=== PATIENT | male | born 1950 | race Caucasian/White ===

== ENCOUNTER → 2024-08-25 08:27 | Outpatient (REF) | payer MEDICARE, OTHER, SELFPAY ==
--- NOTE | 2024-07-23 13:15 | PN.DIAED02 ---
Referral
DSME Class Series Code: [id number]
Referred For: Diabetes Self-Management Training, Medical Nutrition Therapy, Self-Blood Glucose Monitoring, Long-Term Complication Instruction, Accute Complication Instruction, Continuous Glucose Monitoring, Medication management, Insulin
Instruction, Care Coordination, Disease Management
PHI Release Authorization Form Signed: Yes
Patient Problems:
Current Active Problems
Problem Status Onset
Type 2 diabetes mellitus with hyperglycemia
Demographic
(1) Type 2 diabetes mellitus with hyperglycemia
Status: Chronic Code(s): E11.65 - Type 2 diabetes mellitus with hyperglycemia
Patient's primary language-: Gambian
Education: Some college
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
Hours Worked/Week: 20-40
Shift: Rotating
- Social
Primary Support Person: Self
Primary Care Takers: Self
Living Arrangements: Self
- Learning Methods
Preferred Method: Reading
Barriers to Learning: None
Glycemic Control
- Blood Glucose Monitoring Assessment
Date: 11/21/23 (FBS: 157 mg/dL)
Blood glucose monitoring at home: Yes
Monitor Brands: Freestyle
Frequency: occasionally (checks a few times per month)
- Hyperglycemia Assessment
Experiences Hyperglycemia: No
- Hypoglycemia Assessment
Patient carries glucose source: Yes
Patient experiences hypoglycemia: No (had episodes of dizziness while on glimeperide (discontinued after 2 weeks))
Frequency: rarely (Did not check a blood sugar when he felt dizzy-denies blood glucose <70 mg/dL)
Patient has required treatment by others: No
- Blood Glucose Monitoring Results
Source: self-report (reports fasting readings 117 mg/dL to 130 mg/dL)
- Hemoglobin A1c
Date: 11/21/23
A1C Percentage (%): 7.9
Medical History of Diabetes
Family Diabetes History: Mother
Previous Diabetes Education: No
Previous visit with Dietitian: No
Complications/Comorbidity/Specialist: Diabetic Neuropathy, Gastrointestinal disease (GERD: Omeprazole 40 mg daily), Heart Disease (history of afib: Eliquis 5 mg daily, ASA 81 mg daily), Hypertension (Carveditol 6.25 mg BID, ), Hyperlipidemia
(Atrovastin 80 mg daily), Metabolic (Metformin 1000 mg BID, Jardiance 25 mg daily), Other / symptoms (Buproprion 150 mg daily )
Measures
- Anthropometrics
Height: 6 ft
Actual Weight: 195 lb 12.8 oz
- Blood Pressure / Pulse
Blood pressure: 152/80
Pulse: 64
- Diabetes Management
Medical Management for Diabetes: Complete physical exam (06/04/2024), Dental exam (05/2024), Dilated eye exam (03/21/2024)
Self-Care
- Tobacco Usage
Do you now, or have you ever smoked?: Quit more than 1 year ago
- Alcohol & Drugs Usage
Drinks Alcohol: Yes
Amount/day: Social Occasions
- Meals & Dining
Meals & Dining: Patient skips meals: No, Food Intolerance / Allergy: No, Cultural / Nondenominational Dietary Needs: No
Primary Food Scrip Clerk: Self
Dining Out Frequency: Daily (works a rotating schedule and overnight--often grabs food quickly while driving)
- Physical Activity
Physical Limitation: No
Patient participates in physical Activity: No
- Self Foot-Care
Performs Self Foot-Exam: Yes
Frequency: Occationally
- Patient-Self Assessment
Diabetes Knowledge: Poor
Feelings About Diabetes: Acceptance
General Health: Good
Importance of Health: Somewhat
Stress Level: Low
Barriers to Diabetes Management: Nothing
Depression Survey Score: 1
- Diabetes Identification
Carries Diabetes Identification: No
Care Plan
- Education Needs
Patient Education Needs: Diabetes disease process, Chronic complications, Acute complications, Medication, Monitoring, Physical activity, Psychosocial Adjustment, Nutritional management, Goal setting & problem solving
Recommended Diabetes Training Program based on assessment: Outpatient Diabetes Education Program
- Plan of Care
Plan of Care:
Reinaldo presented for his initial assessment for the August DSME program. He has had diabetes for 5 years which was diagnosed while he was in the hospital having surgery. He had a weight loss after diagnosis of 40 pounds which he has maintained. He
currently takes Metformin 1000 mg BID and Jardiance 25 mg daily. His PCP started him on glimeperide a few weeks ago but discontinued it after 2 weeks due to dizziness. Reinaldo checks his blood sugar a few times per month using his freestyle glucometer
at home. I reviewed his testing technique along with a monitoring schedule. The target fasting and 2 hour post prandial glucose ranges were discussed and written material was provided. He states his challenge with following a meal plan is due to
his rotating work schedule and being on the road both days/overnights. We discussed basic nutrition and I reinforced he will receive an individuated meal plan in class that he can adapt to his current schedule. He does not currently exercise. He
reports sleep apnea in addition to his work schedule as reasons he is not active. We discussed increasing activity as one of his goals. I encouraged Reinaldo to contact the office if he has any questions or concerns.
--- NOTE | 2024-07-23 13:37 | PN.DIAED04 ---
Education Record
- Education Record
Class Attended: Other (Initial DSME assessment)
DSME Class Series Code: [id number]
Instructor: Registered Nurse (Kimberly Rader RN)
Pre-Program Knowledge: Needs review / Assistance
Pre-Test Score (%): 45
Goals
- Goal 1
Being Active: Exercise 15 minutes-3 times per week
Goals To Be Evaluated: Exercise 15 mins-3x/week
- Goal 2
Healthy Eating: Make better food choices
Goals To Be Evaluated: Make better food choices
- Goal 3
Monitoring: Monitor more often
Goals To Be Evaluated: Monitor more often
--- NOTE | 2024-08-26 10:01 | PN.DIAED14 ---
This is to notify you that your patient with diabetes, NIVIA SHRESTHA ( 1950), has enrolled in our diabetes self-management classes that are being held at [facility].
These classes will include an introduction to diabetes, diet, medication, exercise and prevention of complications. At the end of our class series, you will receive a report of your patient's participation and progress for your records.
Please contact me at the Diabetes Center, , if there is any particular information regarding your patient that might be helpful to me.
Sincerely,
Dmitry CONNER-ZAK,[facility]
--- NOTE | 2024-08-26 10:01 | PN.DIAED04 ---
Education Record
- Education Record
Class Attended: Class 1
DSME Class Series Code: [id number]
Instructor: Registered Nurse (Kimberly Rader RN)
Class Curriculum:
Outpatient Diabetes Education Program:
Class 1 (120 minutes)
Describe the diabetes disease process and treatment options
Diabetes management
Develop personal strategies to promote health and behavior change
Integrate psychosocial adjustment for daily living
Monitor blood glucose and other parameters. Interpret and use the results for self-management decision making
Prevent, detect, and treat acute complications
Class Length (mins): 120
Post-Class 1 Test Score (%): 94
--- NOTE | 2024-08-28 09:16 | PN.DIAED06 ---
Meal Plans - Regular
- Meal Plan
Diabetic Meal Plan Name: 1800 calories
Breakfast - Total Carbohydrate (grams): 45
Breakfast - Starch Carbohydrate: 0
Breakfast - Fruit Carbohydrate: 0
Breakfast - Milk Carbohydrate: 0
Breakfast - Nonstarchy Vegetables: Yes
Breakfast - Meat/Protein: 1
Breakfast - Fat: 2
Morning Snack - Total Carbohydrate (grams): 15
Morning Snack - Starch Carbohydrate: 0
Morning Snack - Fruit Carbohydrate: 0
Morning Snack - Milk Carbohydrate: 0
Morning Snack - Nonstarchy Vegetables: Yes
Morning Snack - Meat/Protein: 0.5
Morning Snack - Fat: 0
Lunch - Total Carbohydrate (grams): 45
Lunch - Starch Carbohydrate: 0
Lunch - Fruit Carbohydrate: 0
Lunch - Milk Carbohydrate: 0
Lunch - Nonstarchy Vegetables: Yes
Lunch - Meat/Protein: 3
Lunch - Fat: 1
Afternoon Snack - Total Carbohydrate (grams): 15
Afternoon Snack - Starch Carbohydrate: 0
Afternoon Snack - Fruit Carbohydrate: 0
Afternoon Snack - Milk Carbohydrate: 0
Afternoon Snack - Nonstarchy Vegetables: Yes
Afternoon Snack - Meat/Protein: 0.5
Afternoon Snack - Fat: 0
Dinner - Total Carbohydrate (grams): 45
Dinner - Starch Carbohydrate: 0
Dinner - Fruit Carbohydrate: 0
Dinner - Milk Carbohydrate: 0
Dinner - Nonstarchy Vegetables: Yes
Dinner - Meat/Protein: 3
Dinner - Fat: 2
Evening Snack - Total Carbohydrate (grams): 15
Evening Snack - Starch Carbohydrate: 0
Evening Snack - Fruit Carbohydrate: 0
Evening Snack - Milk Carbohydrate: 0
Evening Snack - Nonstarchy Vegetables: Yes
Evening Snack - Meat/Protein: 0
Evening Snack - Fat: 0
== END ==
LOC: DES 08:27
PROVIDERS: ATTENDING PHYSICIAN Internal Medicine
DX: E11.65 Type 2 diabetes mellitus with hyperglycemia (principal)
CPT/HCPCS: 99078

== ENCOUNTER → 2024-09-01 08:28 | Outpatient (REF) | payer MEDICARE, OTHER, SELFPAY ==
--- NOTE | 2024-09-02 09:56 | PN.DIAED04 ---
Education Record
- Education Record
Class Attended: Class 2
DSME Class Series Code: [id number]
Instructor: Registered Dietitian (Luz Arevalo, RD, LDN, CDE)
Class Curriculum:
Outpatient Diabetes Education Program:
Class 2 (120 minutes)
Incorporate nutritional management into lifestyle
Understanding nutritional value
Understanding carbohydrate counting
Class Length (mins): 120
== END ==
LOC: DES 08:28
PROVIDERS: ATTENDING PHYSICIAN Internal Medicine
DX: E11.65 Type 2 diabetes mellitus with hyperglycemia (principal)
CPT/HCPCS: 99078

== ENCOUNTER → 2024-09-08 08:09 | Outpatient (REF) | payer OTHER, SELFPAY ==
--- NOTE | 2024-09-09 08:42 | PN.DIAED04 ---
Education Record
- Education Record
Class Attended: Class 3
DSME Class Series Code: [id number]
Instructor: Registered Dietitian (Luz Arevalo, RD, LDN, CDE)
Class Curriculum:
Outpatient Diabetes Education Program:
Class 3 (120 minutes)
Incorporate nutritional management into lifestyle
Class Length (mins): 120
Post-Class 2 & 3 Test Score (%): 44
== END ==
LOC: DES 08:09
PROVIDERS: ATTENDING PHYSICIAN Internal Medicine
DX: E11.65 Type 2 diabetes mellitus with hyperglycemia (principal)
CPT/HCPCS: 99078

== ENCOUNTER → 2024-09-15 10:47 | Outpatient (REF) | payer OTHER, SELFPAY ==
--- NOTE | 2024-09-16 13:12 | PN.DIAED04 ---
Education Record
- Education Record
Class Attended: Class 4
DSME Class Series Code: [id number]
Instructor: Nurse Practitioner (DALILA Goins)
Class Curriculum:
Outpatient Diabetes Education Program:
Class 4 (120 minutes)
Develop personal strategies to promote health and behavior change
Incorporate physical activity into lifestyle
Utilize medications safety for maximum therapeutic effectiveness
Understand different medication/insulin mechanism of action
Preparing for travel
Class Length (mins): 120
Post-Class 4 Test Score (%): 93
== END ==
LOC: DES 10:47
PROVIDERS: ATTENDING PHYSICIAN Internal Medicine
DX: E11.65 Type 2 diabetes mellitus with hyperglycemia (principal)
CPT/HCPCS: 99078

== ENCOUNTER → 2024-09-22 13:52 | Outpatient (REF) | payer OTHER, SELFPAY | LOC: DES 13:52 | PROVIDERS: ATTENDING PHYSICIAN Internal Medicine | DX: E11.65 Type 2 diabetes mellitus with hyperglycemia (principal) | CPT/HCPCS: 99078 ==

== ENCOUNTER → 2025-04-01 07:04 | Outpatient (REF) | payer OTHER, SELFPAY | LOC: HWRCS 07:04 | PROVIDERS: ATTENDING PHYSICIAN Internal Medicine; REFERRING PHYSICIAN Internal Medicine Cardiovascular Disease | DX: R07.1 Chest pain on breathing (principal) | CPT/HCPCS: 78452; 93017; A9500; J2785 ==

== ENCOUNTER 2025-04-23 12:08 | Day surgery (SDC) | payer OTHER, SELFPAY ==
[2025-04-23] VITALS (10 sets, daily range): BP systolic 112–187; BP diastolic 73–154; BMI 35.7
[2025-04-23] MEDS: LOW STRENGTH ASPIRIN 81 MG PO (12:50)
[2025-04-23 12:53] LABS: Glucose - Point of Care 169 mg/dl (70-99)
[2025-04-23] MEDS: NSS 257 ML IV (12:53)
[2025-04-23 14:30] LABS: ACT-LR - POC 285 Seconds (116-155)
--- NOTE | 2025-04-23 14:39 | ITS.CL.CATH ---
Trucksmith - Catheterization
Cardiac Catheterization
Procedure Report:
LEFT HEART CATHETERIZATION
Date of Procedure: April 23, 2025
Referring: Dr. Lon Ibanez
PROCEDURES:
1. Left heart catheterization with coronary and single-plane left ventriculography
INDICATION: This is a 74-year-old diabetic gentleman with a past medical history notable for paroxysmal atrial fibrillation, hypertension, hyperlipidemia, and history of coronary artery disease. He underwent coronary angiography in 2018 and was
found to have 100% occlusion of an obtuse marginal branch which fills via left to left collaterals as well as borderline significant stenosis in the mid LAD with the IFR measuring 0.90. He has done well with medical therapy since this time but was
seen in our office recently for evaluation of chest discomfort occurring with physical activity such as riding his stationary bike or with emotional stressors. Myocardial perfusion imaging on 04/01/2025 and no fixed or reversible defects and the
estimated ejection fraction was 54%. He is referred for coronary angiography in the setting of ongoing symptoms.
ACCESS: Right radial artery, 6 Ecuadorean sheath
HEMODYNAMICS : (mmHg)
AO (s/d) : 132/78, 96
LV (s/d) : 152/8
LVEDP : 17
CORONARY FINDINGS
DOMINANCE: Right
LEFT MAIN: Normal
LEFT ANTERIOR DESCENDING: The LAD arises normally from the left main and runs in the anterior interventricular groove. A sizable first diagonal branch arises from the proximal third of the LAD and has progressive coronary disease in the proximal
diagonal where a 60% stenotic segment is noted. The mid LAD beyond the diagonal branch also demonstrates progression of atherosclerotic disease with a 65-70% mid LAD stenosis and distal 60-65% narrowing. The distal LAD wraps completely around the
apex supplying a portion of the inferior wall
CIRCUMFLEX: The circumflex was previously noted to have an occluded first obtuse marginal branch which fills via left to left collaterals. The circumflex terminates in a small posterolateral branch.
RIGHT CORONARY ARTERY: The right coronary artery is a dominant vessel that is moderately calcified. There is a proximal 30% stenosis and mid 65-70% stenosis followed by 50% stenosis beyond second RV marginal branch. The remainder of the RCA has
luminal irregularities. The PDA has a 60-70% mid stenosis but is noted to be a rather small caliber vessel. The posterolateral branch is widely patent.
VENTRICULOGRAPHY: Left ventriculography is performed in an MASON projection. The digital single-plane left ventricular ejection fraction is estimated at 60-65%. Mild focal hypokinesis is noted in the anterolateral wall
SEDATION: 38 minutes of procedural sedation was utilized. An independent medical technologist prn was present to assist with and help manage the patient's level of consciousness and physiologic status.
RADIATION SUMMARY: Fluoro Time (min): 3.6, Dose (mGy): 329, DAP (Gy.cm2) : 19.7
Closure Device: TR band
CONCLUSIONS
1. Multivessel coronary artery disease with progression of atherosclerotic disease in LAD, diagonal, and RCA as well as chronic total occlusion of OM1 filling via left to left collaterals
2. Preserved LV systolic function
RECOMMENDATIONS
1. Given the progressive nature of his coronary disease and diabetes I feel that he would be best served by CT surgical evaluation for possible bypass. If he is not deemed to be a good surgical candidate then PCI options are certainly reasonable
but suspect he will do better long-term with surgical revascularization
Copy to: Dr. Lon Ibanez
[2025-04-23 14:54] LABS: Glucose - Point of Care 156 mg/dl (70-99)
[2025-04-23] MEDS: NSS 1000 IV (14:55)
== END 2025-04-23 17:23 | disposition home or self-care (01) ==
LOC: CATH 12:08
PROVIDERS: ATTENDING PHYSICIAN Internal Medicine Interventional Cardiology; FAMILY PHYSICIAN Internal Medicine; OTHER PHYSICIAN Internal Medicine Cardiovascular Disease
DX: I25.10 Atherosclerotic heart disease of native coronary artery without angina pectoris (principal); E11.9 Type 2 diabetes mellitus without complications; E78.5 Hyperlipidemia, unspecified; I10 Essential (primary) hypertension; I25.82 Chronic total occlusion of coronary artery; I48.0 Paroxysmal atrial fibrillation
CPT/HCPCS: 99153; 99152; 82962; 93458; C1769; Q9967

== ENCOUNTER 2025-05-04 05:05 | Inpatient (IN) | payer OTHER, SELFPAY ==
[2025-04-29 08:43] VITALS: BMI 27.3
[2025-04-29 09:17] LABS: Urine Character Clear (Clear)
[2025-04-29 09:23] LABS: Hematocrit 44.7 % (39.0-52.0); Hemoglobin 15.5 g/dL (13.0-18.0); Mean Corp Hgb Conc. 34.7 g/dL (33.0-37.0); Mean Corpuscular Volume 88.9 fL (80.0-94.0); Nucleated Red Blood Cells % 0 % (-); Platelet Count 160 10^3/uL (130-400); Red Cell Dist. Width 12.4 % (11.5-14.5)
[2025-04-29 10:06] LABS: ALT (SGPT) 31 U/L (0-50); AST (SGOT) 22 U/L (17-59); Albumin 4.2 g/dl (3.5-5.0); Alkaline Phosphatase 50 U/L (38-126); Blood Urea Nitrogen 19 mg/dl (9-20); Calcium 9.3 mg/dl (8.4-10.2); Carbon Dioxide 28 mmol/L (22-30); Chloride 99 mmol/L (98-107); Estimated Creatinine Clearance 74 ml/min; Glucose 314 mg/dl (70-99); Potassium 4.1 mmol/L (3.5-5.1); Sodium 136 mmol/L (135-145); Total Protein 6.4 g/dl (6.3-8.2); eGFR > 60.00
[2025-04-29 10:09] LABS: INR 1.11; PT 14.1 Sec (11.4-14.6)
[2025-04-29 10:21] LABS: Glycohemoglobin (HgbA1c) 8.6 % (4.0-5.9)
--- NOTE | 2025-04-29 11:30 | CM ---
spoke to pt in PAT's, we discussed preop CABG teaching including sternal and driving restrictions. he is prev indep, lives alone in an apt with no step sto enter. his daughters are nearby and supportive. he has the CT surgery educ book, soap and
instructions. he is agreeable to a f/u visit from the ct transitional care nurses after dc. cm role explained cand all questions answered. plan is for CABG 05/04.
[2025-05-04] VITALS (13 sets, daily range): BP systolic 78–147; BP diastolic 57–92; BMI 27.3; BMI 25.3
--- NOTE | 2025-05-04 06:16 | W.CVOR.SURPR ---
CVOR Surgeon Immed Pre Op
-
I have examined this patient prior to performance of the scheduled procedure.
The patient's condition is unchanged from the time of the dictated/written History and
Physical and the patient is able to undergo the scheduled procedure.
[2025-05-04] MEDS: PROTONIX 40 MG PO (06:20)
[2025-05-04] MEDS: BACTROBAN 2% OINTMENT 1 APPLIC NASAL ×2 (06:20→20:49)
[2025-05-04] MEDS: MAGNESIUM OXIDE 400 MG PO (06:20)
[2025-05-04] MEDS: LOPRESSOR 25 MG PO (06:20)
--- NOTE | 2025-05-04 06:50 | PTCARENOTE ---
Pt admitted into 2264. Admission questions and med rec complete. VS and Weight obtained. Pt clipped and washed with CHG wipes. Pt confirmed NPO status and 2 CHG showers completed at home. Pt unable to remove bracelet from R wrist. CVOR made aware.
Pre op meds given.
[2025-05-04 07:32] LABS: ACT+ - POC 148 Seconds (82-134)
[2025-05-04 07:45] LABS: Urine Character Clear (Clear)
[2025-05-04 09:17] LABS: B.E. - POC 1.1 mmol/L; Glucose - POC 281 mg/dl (70-99); HCO3 - POC 27 mmol/L (21-28); Hematocrit - POC 41 % PCV (42-52); Hemodilution- POC No; Hemoglobin Calculated - POC 13.8; Ionized Calcium - POC 1.24 mmol/L (1.15-1.33); Lactate - POC 2.25 mmol/L (0.36-0.75); O2 Saturation %Calculated-POC 99.4 % (94-98); PCO2 - POC 46 mmHg (35-48); PO2 - POC 166 mmHg (83-108); POC Comment PRE; Potassium - POC 4.2 mmol/L (3.5-5.1); Sodium - POC 142 mmol/L (136-145); Specimen Type - POC Arterial; pH - POC 7.37 (7.35-7.45)
[2025-05-04 09:34] LABS: ACT+ - POC 929 Seconds (82-134)
[2025-05-04 09:57] LABS: B.E. - POC -0.4 mmol/L; Glucose - POC 202 mg/dl (70-99); HCO3 - POC 26 mmol/L (21-28); Hematocrit - POC 35 % PCV (42-52); Hemodilution- POC No; Hemoglobin Calculated - POC 12.0; Ionized Calcium - POC 1.19 mmol/L (1.15-1.33); Lactate - POC 1.47 mmol/L (0.36-0.75); O2 Saturation %Calculated-POC 99.9 % (94-98); PCO2 - POC 48 mmHg (35-48); PO2 - POC 373 mmHg (83-108); Potassium - POC 3.5 mmol/L (3.5-5.1); Sodium - POC 144 mmol/L (136-145); Specimen Type - POC Arterial; pH - POC 7.34 (7.35-7.45)
[2025-05-04 10:09] LABS: ACT+ - POC 726 Seconds (82-134)
[2025-05-04 10:27] LABS: B.E. - POC 3.1 mmol/L; Glucose - POC 173 mg/dl (70-99); HCO3 - POC 28 mmol/L (21-28); Hematocrit - POC 31 % PCV (42-52); Hemodilution- POC Yes; Hemoglobin Calculated - POC 10.7; Ionized Calcium - POC 1.11 mmol/L (1.15-1.33); Lactate - POC 2.01 mmol/L (0.36-0.75); O2 Saturation %Calculated-POC 100.0 % (94-98); PCO2 - POC 42 mmHg (35-48); PO2 - POC 391 mmHg (83-108); POC Comment CPB; Potassium - POC 3.6 mmol/L (3.5-5.1); Sodium - POC 143 mmol/L (136-145); Specimen Type - POC Arterial; pH - POC 7.43 (7.35-7.45)
[2025-05-04 10:38] LABS: ACT+ - POC 629 Seconds (82-134)
[2025-05-04 11:00] LABS: B.E. - POC 4.7 mmol/L; Glucose - POC 136 mg/dl (70-99); HCO3 - POC 29 mmol/L (21-28); Hematocrit - POC 28 % PCV (42-52); Hemodilution- POC Yes; Hemoglobin Calculated - POC 9.7; Ionized Calcium - POC 1.07 mmol/L (1.15-1.33); Lactate - POC 2.47 mmol/L (0.36-0.75); O2 Saturation %Calculated-POC 99.9 % (94-98); PCO2 - POC 40 mmHg (35-48); PO2 - POC 316 mmHg (83-108); POC Comment CPB; Potassium - POC 3.8 mmol/L (3.5-5.1); Sodium - POC 143 mmol/L (136-145); Specimen Type - POC Arterial; pH - POC 7.47 (7.35-7.45)
[2025-05-04 11:09] LABS: ACT+ - POC 603 Seconds (82-134)
[2025-05-04 11:20] LABS: B.E. - POC 3.4 mmol/L; Glucose - POC 114 mg/dl (70-99); HCO3 - POC 27 mmol/L (21-28); Hematocrit - POC 29 % PCV (42-52); Hemodilution- POC Yes; Hemoglobin Calculated - POC 9.7; Ionized Calcium - POC 1.11 mmol/L (1.15-1.33); Lactate - POC 2.75 mmol/L (0.36-0.75); O2 Saturation %Calculated-POC 99.9 % (94-98); PCO2 - POC 38 mmHg (35-48); PO2 - POC 288 mmHg (83-108); POC Comment CPB; Potassium - POC 4.2 mmol/L (3.5-5.1); Sodium - POC 145 mmol/L (136-145); Specimen Type - POC Arterial; pH - POC 7.47 (7.35-7.45)
[2025-05-04 11:30] LABS: ACT+ - POC 539 Seconds (82-134)
[2025-05-04 11:43] LABS: ACT+ - POC 546 Seconds (82-134)
--- NOTE | 2025-05-04 11:52 | CM ---
pt in OR today, cm to follow.
[2025-05-04 12:12] LABS: B.E. - POC 3.8 mmol/L; Glucose - POC 113 mg/dl (70-99); HCO3 - POC 28 mmol/L (21-28); Hematocrit - POC 30 % PCV (42-52); Hemodilution- POC Yes; Hemoglobin Calculated - POC 10.2; Ionized Calcium - POC 1.10 mmol/L (1.15-1.33); Lactate - POC 2.91 mmol/L (0.36-0.75); O2 Saturation %Calculated-POC 99.9 % (94-98); PCO2 - POC 41 mmHg (35-48); PO2 - POC 310 mmHg (83-108); POC Comment WARM; Potassium - POC 4.0 mmol/L (3.5-5.1); Sodium - POC 145 mmol/L (136-145); Specimen Type - POC Arterial; pH - POC 7.44 (7.35-7.45)
[2025-05-04 12:18] LABS: ACT+ - POC 131 Seconds (82-134)
[2025-05-04 12:23] LABS: B.E. - POC 2.5 mmol/L; Glucose - POC 102 mg/dl (70-99); HCO3 - POC 27 mmol/L (21-28); Hematocrit - POC 28 % PCV (42-52); Hemodilution- POC Yes; Hemoglobin Calculated - POC 9.7; Ionized Calcium - POC 1.28 mmol/L (1.15-1.33); Lactate - POC 2.35 mmol/L (0.36-0.75); O2 Saturation %Calculated-POC 99.5 % (94-98); PCO2 - POC 42 mmHg (35-48); PO2 - POC 166 mmHg (83-108); POC Comment POST; Potassium - POC 3.2 mmol/L (3.5-5.1); Sodium - POC 145 mmol/L (136-145); Specimen Type - POC Arterial; pH - POC 7.42 (7.35-7.45)
[2025-05-04] MEDS: NOVOLOG FLEXPEN SC ×2 (12:59→16:16)
[2025-05-04] MEDS: WELLBUTRIN XL (24 hour extended release) PO (13:00)
[2025-05-04 13:08] LABS: ACT+ - POC 557 Seconds (82-134)
[2025-05-04] MEDS: NEURONTIN PO ×3 (13:12→21:32)
[2025-05-04 13:28] LABS: B.E. - POC 1.0 mmol/L; Glucose - POC 100 mg/dl (70-99); HCO3 - POC 26 mmol/L (21-28); Hematocrit - POC 28 % PCV (42-52); Hemodilution- POC Yes; Hemoglobin Calculated - POC 9.4; Ionized Calcium - POC 1.14 mmol/L (1.15-1.33); Lactate - POC 1.86 mmol/L (0.36-0.75); O2 Saturation %Calculated-POC 99.9 % (94-98); PCO2 - POC 40 mmHg (35-48); PO2 - POC 251 mmHg (83-108); POC Comment CPB; Potassium - POC 3.2 mmol/L (3.5-5.1); Sodium - POC 143 mmol/L (136-145); Specimen Type - POC Arterial; pH - POC 7.42 (7.35-7.45)
[2025-05-04 13:36] LABS: ACT+ - POC 397 Seconds (82-134)
[2025-05-04 13:48] LABS: ACT+ - POC 501 Seconds (82-134)
[2025-05-04 14:08] LABS: B.E. - POC 4.7 mmol/L; Glucose - POC 113 mg/dl (70-99); HCO3 - POC 29 mmol/L (21-28); Hematocrit - POC 29 % PCV (42-52); Hemodilution- POC Yes; Hemoglobin Calculated - POC 9.7; Ionized Calcium - POC 1.14 mmol/L (1.15-1.33); Lactate - POC 2.20 mmol/L (0.36-0.75); O2 Saturation %Calculated-POC 100.0 % (94-98); PCO2 - POC 40 mmHg (35-48); PO2 - POC 466 mmHg (83-108); POC Comment CPB; Potassium - POC 3.8 mmol/L (3.5-5.1); Sodium - POC 144 mmol/L (136-145); Specimen Type - POC Arterial; pH - POC 7.47 (7.35-7.45)
[2025-05-04 14:18] LABS: ACT+ - POC 156 Seconds (82-134)
[2025-05-04] MEDS: TYLENOL PO ×2 (14:22→21:32)
--- NOTE | 2025-05-04 14:27 | W.IMMPOSTOP ---
Addendum entered and electronically signed by Dwaine Dotson MD 05/04/25 16:10:
[id number]
Original Note:
Surgical Immed Post Op Note
-
CARDIAC SURGERY OPERATIVE NOTE:
Preoperative Dx:
MVCAD
Atrial fibrillation
Poorly-controlled DM
Postoperative Dx:
Same
Procedures:
1) Median sternotomy
2) Takedown of SUSANNA (narrow pedicle)
3) Endoscopic harvest/prep of RLE GSV
4) Encompass MAZE procedure
5) CABG x 3 (SUSANNA to LAD, GSV to D1, GSV to distal RCA)
6) ELAA
7) Repair of minor epicardial adipose avulsion
8) Re-establishment of CPB w/ repair of (late) small arterial bleed from prior epicardial adipose avulsion
Surgeon:
Dwaine Dotson M.D.
Parent Aide:
Makenzie Loving P.A.-C.; endoscopic harvest/prep of RLE GSV; first front ventilator throughout; [id number] sternotomy closure
Marcio Fox P.A.-C.; assisted w/ GSV prep; closure of RLE incisions; [id number] sternotomy closure
Anesthesia:
Vladimir Denton M.D and Kar Starr, C.R.N.A.
Perfusion:
Melissa Nunez, C.C.P.; 118min, XC: 70min
Stephen Rust C.C.P.; 37min (total 155min)
Findings:
SUSANNA was a healthy conduit w/ brisk blood flow; ELD 2.25mm
GSV was healthy conduit w/ ELD 3.75-4.0mm
Distal RCA just past the crux was a moderately calcified vessel, anastomosis performed as distal RCA transitioned to proximal PDA. There were scattered calcifications throughout this vessel. ELD 2.75mm
OM1 was cleared over several locations. Unfortunately, all of these areas were too small to accommodate bypass. This vessel has a MEAT BONER with L-to-L collaterals on catheterization. Bypass not performed
D1 had scattered calcifications throughout its course. ELD 2.75mm
LAD was visible on the epicardial surface, scattered calcifications throughout. Anastomosis performed at junction between mid- and apical segments. A 1.5mm vessel probe passed to prox-to-mid vessel before encountering resistance. A 1.0mm vessel
probe passed to the apex w/o resistence.
SARA w/ 'windsock' morphology, small base, successfully occluded at base w/ 35mm AtriClip - confirmed w/ ROSALES assessment
This patient's cardiac tissues were quite friable. His lateral epicardial adipose had avulsed over approximately 2cm with gentle positioning for CABG. This was initially primarily repaired w/ running 6-0 prolene w/ good visual result.
Unfortunately, there was a very small arterial branch that bleed late after separation from CPB and decannulation. This required re-establishment of CPB to identify and address.
The patient's RA tissues were also quite friable. After initial decannulation, this site required several, interrupted pledgetted sutures to achieve hemostasis. Given the friability of his atrial tissues, I cannulated the CFV w/ a long 24Fr
cannula when re-establishment of CPB was required to avoid manipulation of his RA tissues.
Post-ROSALES: LVEF 60-65%, no RWMA, RV ok, no sig VHD, SARA confirmed excluded
Complications:
Late bleeding necessitating re-establishment of CPB for repair (see above)
Pacer-dependance
Implants:
AtriClip 35mm - LOT [id number]
Bipolar epicardial pacing wires x 2
CT x 4 (B/L pleural, inferior mediastinal, superior mediastinal)
Sternal wires x 7
Sternal 'X' plate w/ 8 - 14mm screws
Sternal 'Square' plate w/ 4 - 8mm screws
Transfusions:
None
Condition:
80 V-paced (initial was AF in 40s), 90/61, CVP 14, 99
GTTS: levophed 6, starting dobutamine
Stable/guarded to CVICU
[2025-05-04 14:31] LABS: ACT+ - POC 159 Seconds (82-134)
[2025-05-04 15:29] LABS: Glucose - Point of Care 150 mg/dl (70-99)
[2025-05-04] MEDS: LR 250 ML IV ×4 (15:35→17:00)
[2025-05-04 15:36] LABS: B.E. -2.0 mmol/L; HCO3 23.1 mmol/L (21-28); O2 Saturation % 97.5 % (94-98); PCO2 40 mmHg (35-48); PO2 88 mmHg (83-108); Potassium 3.3 mMOL/L (3.5-5.1); Sodium 139 mMOL/L (136-145)
[2025-05-04 15:47] LABS: INR 1.76; PT 20.7 Sec (11.4-14.6)
[2025-05-04 15:48] LABS: APTT 32.1 Sec (23.4-35.0); Hematocrit 30.6 % (39.0-52.0); Hemoglobin 11.1 g/dL (13.0-18.0)
[2025-05-04 15:49] LABS: Blood Urea Nitrogen 14 mg/dl (9-20); Estimated Creatinine Clearance 119 ml/min; Glucose 136 mg/dl (70-99); Magnesium 2.2 mg/dl (1.6-2.3)
--- NOTE | 2025-05-04 16:00 | PTCARENOTE ---
Patient received from CVOR s/p CABG x 3/MAZE/LAAE. V-paced via cm, SaO2 @ 97% on ventilator, titrating FiO2 as able. RIJ Cordis w/CVP transduced, R radial arterial line present - both leveled, flushed, and calibrated w/good waveforms returned.
Epicardial V-wires x 2, one insulated, one to pulse generator actively pacing. Mediastinal chest tubes x 2, Y-connected to one pleurevac, L and R pleural chest tubes Y-connected to separate collection chamber - both placed to -20cm suction w/no air
leaks noted. Amin catheter to gravity. All procedural sites stable. R groin site w/red bumper present. Labs drawn, pcxr obtained. See work list for full assessment, interventions performed, and intravenous infusion rates and titrations.
--- NOTE | 2025-05-04 16:02 | W.PN.UPDATE ---
Update Note
Progress Note Update
74-year-old male was electively admitted on 05/04/2025 for CABG due to triple-vessel coronary disease and unstable angina
IV fluids: 1500
U.O.:� 1050
Blood:� none
Wires:� 2 bipolar V-wires (1 attached to pacer box & other as back-up)
Drips: Levophed @ 4; Dobutamine @ 3; Precedex @ 0.5; Insulin
�
NEURO: sedated, pupils +2mm B/L
RESP: #8OT @23cm> 500/60%/14/5. Lungs clear B/L. 2 mediastinal (120cc on arrival) and R/L pleural (80cc on arrival) chest tubes to -20cm suction. Sanguineous drainage
CV: RRR +S1, S2, no S3, no�rub, no murmur. Dermabond to median sternotomy. RIJ w/Slik intact. CVP 5
ABD: round, soft, no BS
EXT: no edema, +2/4 DP pulses B/L, no femoral bruit, RLE ADRIANA wrap intact; right radial A-line intact; right wrist metal bracelet soldered to wrist; Right femoral retention suture
: Amin with clear yellow urine
�
A/P: POD #0 s/p CABG x 3 (SUSANNA to LAD, GSV to D1, GSV to distal RCA), Encompass MAZE, ELAA, [id number] of minor epicardial adipose avulsion, re-establishment of CPB w/ repair of (late) small arterial bleed from prior epicardial adipose avulsion
ROSALES: EF�55-60%
- wean and extubate
- wean Levophed to maintain SBP 90-110mmHg
- keep Dobutamine @ 3
# Atrial fibrillation
- s/p MAZE/SARA clip
- Eliquis once chest tubes out
# Complete heart Block
- pacer dependent immediately post op (VVI @ 80)
- hold rate lowering agents
# CAD
- will require ASA, Plavix, statin, beta arvin as HR/BP permit
�
# acute surgical blood loss anemia-expected
- trend CBC
�
# T2DM (A1C 8.6)
- insulin infusion x 48h
- diabetic B2B APPOINTMENT SETTER consulted
- on Jardiance, januvia, Metformin at home
�
# Anxiety
-resume Bupropion when taking solids
[2025-05-04 16:04] LABS: Glucose - Point of Care 142 mg/dl (70-99)
[2025-05-04] MEDS: ANCEF 10 IV ×2 (16:10)
[2025-05-04] MEDS: KCL 50 IV ×2 (16:12→18:20)
[2025-05-04] MEDS: NSS 500 IV (16:15)
[2025-05-04 16:23] LABS: Platelet Count 95 10^3/uL (130-400)
[2025-05-04 16:53] LABS: B.E. - POC 1.4 mmol/L; Glucose - POC 127 mg/dl (70-99); HCO3 - POC 26 mmol/L (21-28); Hematocrit - POC 27 % PCV (42-52); Hemodilution- POC Yes; Hemoglobin Calculated - POC 9.1; Ionized Calcium - POC 1.27 mmol/L (1.15-1.33); Lactate - POC 1.86 mmol/L (0.36-0.75); O2 Saturation %Calculated-POC 95.4 % (94-98); PCO2 - POC 38 mmHg (35-48); PO2 - POC 75 mmHg (83-108); POC Comment POST; Potassium - POC 3.3 mmol/L (3.5-5.1); Sodium - POC 143 mmol/L (136-145); Specimen Type - POC Arterial; pH - POC 7.44 (7.35-7.45)
[2025-05-04 17:02] LABS: Glucose - Point of Care 122 mg/dl (70-99)
[2025-05-04] MEDS: CALCIUM GLUCONATE 100 IV (17:09)
[2025-05-04] MEDS: LIPITOR PO (17:49)
[2025-05-04 18:05] LABS: Glucose - Point of Care 120 mg/dl (70-99)
--- NOTE | 2025-05-04 18:26 | CON.INTV ---
Consultation
Consultation Request
Date/Time Consultation Requested: 05/04/2025
Date/Time Consultation Performed: 05/04/2025
Medical History
-
Chief Complaint: Angina with effort
History of Present Illness:
Patient is a very pleasant 74 gentleman with known history of coronary artery disease who was having angina with activity. He was evaluated by cardiology service and in 04/2025 he had a cardiac catheterization performed for suggestive of
multivessel disease. Patient was subsequently referred to cardiothoracic surgery and was recommended to have coronary artery bypass graft in view of multiple vessels being involved, history of diabetes. On 05/04, patient was taken to the OR and
had coronary bypass graft performed along with maze procedure and left atrial appendage exclusion. Postprocedure, patient was admitted to CVICU and detective precinct consultation was requested for further input.
Past Medical History
Past Medical History: Reports Other
Additional Past Medical History:
Hypertension
DM-II
Atrial Fibrillation - Isolated Episode / [place] A-Fib
ASCVD
Depression
Diverticular Disease
Past Surgical History: Reports Other
Additional Past Surgical History:
Cardiac Cath without Stent / Angioplasty
Sigmoid Resection / Primary Anastomosis
Hernia Repair x 2
Social History
Tobacco: Smoker (Former cigarette smoker - quit about 25 years ago. Currently smokes occasional cigar.)
Alcohol: Occasional
Drug: None
Personal:
Living: With Family
Family History
Family History: Other (Mother: DM Father: Prostate Cancer Sister: Lupus, Sjogren's)
Allergies / Home Medications
Allergies
Allergy/AdvReac Type Severity Reaction Status Date / Time
morphine Allergy not Verified 04/28/25 15:18
effective
Home Medications
�Medication �Instructions �Recorded �Confirmed �Last Taken �Type
apixaban 5 mg tablet (Eliquis) 5 mg PO BID Blood clot 09/08/22 05/04/25 04/30/25 22:00 History
prevention/tx
empagliflozin 25 mg tablet 25 mg PO DAILY Diabetes 09/08/22 05/04/25 04/30/25 08:00 History
(Jardiance)
omeprazole 40 mg capsule,delayed 40 mg PO DAILY Gastrointestinal 09/08/22 05/04/25 05/03/25 08:00 History
release issue
amlodipine 2.5 mg tablet 2.5 mg PO QPM Blood Pressure 04/23/25 05/04/25 05/01/25 22:00 History
nitroglycerin 0.4 mg sublingual 0.4 mg sublingual Q15M PRN chest 04/23/25 05/04/25 05/01/25 08:00 History
tablet pain
aspirin 81 mg tablet 81 mg PO DAILY Blood Clot 04/28/25 05/04/25 05/03/25 08:00 History
Prevention/Tx
atorvastatin 80 mg tablet 80 mg PO QPM High Cholesterol 04/28/25 05/04/25 05/03/25 22:00 History
bupropion HCl 150 mg 24 hr tablet, 150 mg PO DAILY Mental 04/28/25 05/04/25 05/03/25 08:00 History
extended release Health/Anxiety
multivitamin 1 tab PO DAILY Supplement 04/28/25 05/04/25 04/26/25 08:00 History
naproxen sodium 220 mg capsule 440 mg PO BID PRN pain 04/28/25 05/04/25 04/29/25 22:00 History
(Aleve)
sitagliptin phosphate 100 mg 100 mg PO QPM Heart 04/28/25 05/04/25 05/03/25 22:00 History
tablet (Januvia) Disease/Condition
carvedilol 6.25 mg tablet 6.25 mg PO BID Blood Pressure 05/04/25 05/04/25 05/03/25 22:00 History
metformin 1,000 mg tablet 1,000 mg PO BID@0800,1700 Diabetes 05/04/25 04/28/25 Unknown History
Review of Systems
-
Unable to Obtain full review of systems at this time due to: Patient Intubation
Vitals / Labs / Diagnostic Testing
Vital Signs
Temp Pulse Resp BP Pulse Ox
97.9 F 79 14 78/57 97
05/04/25 18:00 05/04/25 18:06 05/04/25 18:06 05/04/25 17:00 05/04/25 18:06
Lab Data
05/04/25 15:22
Laboratory Results
05/04/25
15:22
PT 20.7 H
INR 1.76
APTT 32.1
pH 7.37
pCO2 40
pO2 88
HCO3 23.1
O2 Delivery Level
Diagnostic Testing:
Physical Exam
-
HEENT: Normocephalic
Cardiovascular: S1/S2
Respiratory: Clear and Non-Labored Respirations
GI: Soft and Non Distended
Neurology: Other (Sedated)
Skin: Warm
General: Comfortable
Assessment
-
Patient is a 74-year-old gentleman with history of coronary artery disease, s/p CABG, maze procedure, left atrial appendage exclusion POD # 0
Titrate off pressors per protocol, currently on Levophed at 8 and dobutamine at 3
ECHO reviewed with normal EF
Management of chest tubes per primary service
Intubated/sedated, initiate SAT. Precedex placed on hold
Pain control
RASS goal of 0 to -1
Intubated for procedure, SBT trial when patient able to spontaneously breath
Current vent settings: SIMV+PS 500/14/40%/5, PS 5
AB.30 /88
CXR with basilar atelectasis, chest tubes in place, otherwise unremarkable
Extubate per protocol
Maintain supplement oxygen as needed
No prior history of pulmonary disease, remote history of smoking, will get additional details once patient is awake
Prior PFTs reviewed, normal spirometry, minimally reduced total lung capacity, preserved FEV1 and normal diffusion capacity.
Can add nebulizers if needed
Aspiration precautions
Encouraged incentive spirometry, OOB/ambulation/early mobility
Advance diet as tolerated following extubation
GI prophylaxis: Protonix
Monitor critical I/O's
Amin/chest tube output
Hb/platelets postoperatively, mild drift
Trend CBC for now
Can transfuse if indicated for Hb <7, plt <50 in surgical patients
DVT prophylaxis including SCDs
Insulin protocol initiated and ongoing
Transition to SQ/off as indicated per team
Other medical diagnoses:
- HTN
- HLD
- DM
- Atrial Fibrillation on AC with Eliquis
- H/o Smoking
- GERD
Critical Care time [61] mins -- The patient is admitted for acute critical illness for the treatment of vital organ failure and/or prevention of further life-threatening conditions. Total care includes time spent in review of history, physical exam,
medications, hemodynamic/ventilator parameters, laboratory data, imaging and discussion with house staff, pharmacy, respiratory therapy, hospital scientist, and nursing
Data:
CXR 04/2025: Endotracheal tube tip projects over the midthoracic trachea.
Mildly decreased lung volumes. No pneumothorax. There are opacities projecting over the right mid/upper lung favored to represent atelectasis and a possible small layering pleural effusion.
CT Chest 04/2025: No acute disease of the chest.
Moderate atherosclerotic vascular disease.
PFT 04/2025: FEV1 3.24 L, 100% of predicted, FEV1/FVC of 83. Normal spirometry without evidence of obstruction. Total lung capacity mildly reduced at 70% of predicted, ERV reduced at 57% of predicted suspect due to obesity. Diffusion capacity
normal at 78% of predicted.
ECHO 04/2025: 1. Normal left ventricular chamber size with mild concentric left ventricular hypertrophy. Preserved left ventricular systolic function with ejection fraction 55 to 60%.
2. Mild tricuspid regurgitation.
3. Compared to previous echo from September 2022, no significant change.
[facility] 04/2025: 1. Multivessel coronary artery disease with progression of atherosclerotic disease in LAD, diagonal, and RCA as well as chronic total occlusion of OM1 filling via left to left collaterals
2. Preserved LV systolic function
--- NOTE | 2025-05-04 18:34 | W.PN.CARDCBS ---
Today's Communication / Plan
-
Immediate postop CABG/left atrial appendage clip
Impression / Plan
-
Impression:
CABG times 08/02/2024 (CANTU to LAD, saphenous vein graft to diagonal, saphenous vein graft)
Hypertension
Paroxysmal atrial fibrillation type 2 diabetes
GERD rheumatoid arthritis
Sleep apnea
Depression
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
Atheroma of the aortic arch
Plan:
Seen shortly postop
Appreciate efforts of CT surgery
Continue supportive care
We will continue to follow
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
Subjective
Date of Service: May 04, 2025:
74-year-old man status post CABG x 3 (LAD, SVG to D1, SVG to RCA, with left atrial appendage clip) 05/04/2025, currently intubated
Meds reviewed, currently on dobutamine, norepinephrine insulin,
Vital signs as below, labs as below
Clear lungs, incisions intact, regular rate and rhythm, no murmurs, JVD okay, no edema
Chest x-ray: Cardiomegaly, tubes in place, intubated, left atrial appendage clip, central line
ECG: Sinus rhythm, right bundle branch block, left anterior fascicular block
Objective
Labs:
05/04/25 15:22
Labs
Hgb 11.1 g/dL (13.0-18.0) L D 05/04/25 15:22
Hct 30.6 % (39.0-52.0) L 05/04/25 15:22
Plt Count 95 10^3/uL (130-400) L D 05/04/25 15:22
PT 20.7 Sec (11.4-14.6) H 05/04/25 15:22
INR 1.76 05/04/25 15:22
APTT 32.1 Sec (23.4-35.0) 05/04/25 15:22
Sodium 136 mmol/L (135-145) 04/29/25 08:54
Potassium 4.1 mmol/L (3.5-5.1) 04/29/25 08:54
BUN 14 mg/dl (9-20) 05/04/25 15:22
Creatinine 0.6 mg/dL (0.7-1.3) L 05/04/25 15:22
Glucose 136 mg/dl (70-99) H 05/04/25 15:22
Vital Signs and I&O:
Vital Signs
Temp Pulse Resp BP Pulse Ox
36.6 C 79 14 78/57 97
05/04/25 18:00 05/04/25 18:06 05/04/25 18:06 05/04/25 17:00 05/04/25 18:06
Vital Signs
Temp Pulse Resp BP Pulse Ox
36.6 C 79 14 78/57 97
05/04/25 18:00 05/04/25 18:06 05/04/25 18:06 05/04/25 17:00 05/04/25 18:06
Intake & Output
05/02/25 05/03/25 05/04/25 05/05/25
07:59 07:59 07:59 07:59
Intake Total 1180.6 / 1180.6
Output Total 880 / 880
Balance 300.6 / 300.6
Physical Exam
Physical Exam
See above
[2025-05-04 19:03] LABS: Glucose - Point of Care 124 mg/dl (70-99)
--- NOTE | 2025-05-04 19:19 | PTCARENOTE ---
Received pt from day shift RN at 1900. Pt intubated, sedation off, following commands, moves all extremities. Heart sounds distant, in SR w/RBBB 2 V wires, 1 insulated, 1 connected to pacer box, VVI 60/10/.8, BP labile, SBP 90-110, episodes of
hypotensive SBP high 70s-80s, recovers w/ inc in levo gtt. CVP 10-12, palpable pulses, no edema, warm extremities. Resp, lungs are clr, cpap on vent since 184, spo2 >94%. 4 CT, 2 med and 2 pleural, -20 suction, no air leak, no crepitus. Hypoactive
bowel sounds, patel in place, draining clr yellow urine. MS w/dressing intact, old drainage marked, R graft site CDI w/marcie wrap, R groin site CDI, ecchymotic, no hematoma, no bleeding. RIJ cordis, PIV x1. Levo, dobut, insulin infusing. See
flowsheets for further documentation.
[2025-05-04 19:50] LABS: B.E. -0.4 mmol/L; HCO3 25.4 mmol/L (21-28); O2 Saturation % 97.9 % (94-98); PCO2 46 mmHg (35-48); PO2 83 mmHg (83-108)
[2025-05-04 19:56] LABS: Hematocrit 26.9 % (39.0-52.0); Hemoglobin 9.6 g/dL (13.0-18.0); Mean Corp Hgb Conc. 35.7 g/dL (33.0-37.0); Mean Corpuscular Volume 88.2 fL (80.0-94.0); Platelet Count 130 10^3/uL (130-400); Red Cell Dist. Width 12.5 % (11.5-14.5)
[2025-05-04 20:03] LABS: INR 1.53; PT 18.5 Sec (11.4-14.6)
[2025-05-04 20:04] LABS: APTT 31.6 Sec (23.4-35.0)
[2025-05-04 20:08] LABS: Glucose - Point of Care 130 mg/dl (70-99)
[2025-05-04 20:09] LABS: Blood Urea Nitrogen 15 mg/dl (9-20); Calcium 8.4 mg/dl (8.4-10.2); Carbon Dioxide 28 mmol/L (22-30); Chloride 107 mmol/L (98-107); Estimated Creatinine Clearance 102 ml/min; Glucose 167 mg/dl (70-99); Magnesium 2.0 mg/dl (1.6-2.3); Potassium 4.9 mmol/L (3.5-5.1); Sodium 136 mmol/L (135-145); eGFR > 60.00
[2025-05-04] MEDS: SENOKOT PO (20:47)
[2025-05-04] MEDS: ANCEF 5 IV (20:48)
[2025-05-04] MEDS: LEVOPHED 250 IV (21:31)
[2025-05-04] MEDS: ASPIRIN 300 MG RECTAL (21:53)
[2025-05-04 21:58] LABS: Glucose - Point of Care 141 mg/dl (70-99)
[2025-05-04] MEDS: REGLAN 10 MG IV (22:11)
[2025-05-04] MEDS: CALCIUM GLUCONATE 130 MG IV (23:04)
--- NOTE | 2025-05-04 23:08 | PTCARENOTE ---
Pt reassessment unchanged. CT PA changed VVI setting to a back up rate of 80, pt vpaced at 80 since. BPs still labile, 1 unit of FFP and 1 unit of PRBC given. 3g of calcium started. Able to wean down levo some to maintain SBP 90-110. Plan to cpap
trial again after calcium finished. See flowsheets from further documentation.
[2025-05-04 23:57] LABS: Glucose - Point of Care 141 mg/dl (70-99)
[2025-05-05] VITALS (31 sets, daily range): BP systolic 85–137; BP diastolic 53–108; BMI 27.2
[2025-05-05 00:22] LABS: B.E. 1.2 mmol/L; HCO3 26.0 mmol/L (21-28); O2 Saturation % 98.4 % (94-98); PCO2 41 mmHg (35-48); PO2 85 mmHg (83-108); Potassium 4.1 mMOL/L (3.5-5.1)
--- NOTE | 2025-05-05 00:37 | PTCARENOTE ---
Resp at the bedside, pt extubated to 6L NC.
[2025-05-05] MEDS: OFIRMEV 100 IV (00:41)
[2025-05-05 01:03] LABS: Glucose - Point of Care 135 mg/dl (70-99)
[2025-05-05 02:03] LABS: Glucose - Point of Care 117 mg/dl (70-99)
[2025-05-05 03:18] LABS: Glucose - Point of Care 92 mg/dl (70-99)
--- NOTE | 2025-05-05 03:19 | PTCARENOTE ---
Pt reassessment grossly unchanged. NSR HR 90-100s, occasional PVCs and some accelerated junc rhythm. No complaints of pain. BPs are less labile, although still requiring titration of levo to maintain SBP 90-110. On 6L NC post extubated, spo2 >94%.
See flowsheet for further documentation.
--- NOTE | 2025-05-05 03:48 | W.PN.CT ---
Today's Communication / Plan
-
Plan:
-No major issues overnight. Hemodynamically and neurologically intact
-Pt was successfully extubated this morning 05/05/25 @ 0035
-On Dobutamine @ 3 given postop bradycardia, on Levophed @ 4. Remains on insulin gtt per protocol
-Will renew insulin gtt, pt is a diabetic, A1C 8.6
-U/O since OR 880 mL
-Monitor chest tube drainage: 2meds 380/570, R/L pleural 140/450. CxR this AM look clear with dilated bowels likely from air swallowed while ET tube was in place and bibasilar atelectasis on my assessment, F/U official report
-Maintain temporary PW, will eventually cut
-Held Amiodarone last night d/t bradycardia and pacer dependence
-Holding Lopressor while on Dobutamine, hypotensive and bradycardic overnight
-Rhythm has been all over, slow afib, to a-fib with RVR, to sinus tachycardia, to NSR. Noted to have both R and LBBB
-Cont. current meds (ASA, Plavix, Lipitor, Protonix)
-Monitor h/h 03/16.5; INR improved with FFPs from 1.76-> 1.53 -> 1.33
-Maintain A-line and SLIC while on Dobutamine and Levophed
-Keep patel another day to avoid complications of postop urinary retention d/t pt slow to awaken from anesthesia
-Will maintain insulin gtt another day per protocol and tele phase tomorrow, Diabetic with A1C 8.6, will consult Diabetes education/management
-Maintain cordis
-Monitor right groin, has retention suture
-Encourage use of IS
-Wean off O2 as tolerated
-OOB into chair/Ambulate
Assessment / Plan
-
Assessment:
-S/p Median sternotomy/CABG x 3 (SUSANNA to LAD, GSV to D1, GSV to distal RCA)/Endoscopic harvest/prep of RLE GSV/Encompass MAZE procedure/ELAA/Repair of minor epicardial adipose avulsion/Re-establishment of CPB w/ repair of (late) small arterial bleed
from prior epicardial adipose avulsion, by Dr. Dotson, 05/04/25, pod#1
-Severe Multivessel CAD
-[place]
-Hx CAD
-Hx NSTEMI (0.914) S/P LHC showed an occluded OM branch of LCx filling via left to left collaterals, 03/21/2018
-PAF (on Eliquis @ home)
-LVEF 60-65% per intraop ROSALES
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
-T2DM (A1C 8.6)
-HTN
-GERD
-Rheumatoid Arthritis
-KYLEE
-Depression
-S/P Colon resection, 2014
-S/P Inguinal hernia repair
-S/P Appendectomy
-S/P Vasectomy, 1982
-Acute postop blood loss/Anemia (transfused 1u PRBC)
-Acute postop coagulopathy (transfused 2u FFP's)
-Acute postop right bundle branch block with left anterior fascicular block seen postop
-Acute postop bradycardia 40's S/P dobutamine
-Acute postop atelectasis
-Acute postop hypovolemia with subsequent hypervolemia
Discussed patient care with: Cardiology, Nursing, Respiratory Therapy, Pharmacy and Care Team
Subjective
Procedure
Median sternotomy/CABG x 3 (SUSANNA to LAD, GSV to D1, GSV to distal RCA)/Endoscopic harvest/prep of RLE GSV/Encompass MAZE procedure/ELAA/Repair of minor epicardial adipose avulsion/Re-establishment of CPB w/ repair of (late) small arterial bleed
from prior epicardial adipose avulsion, by Dr. Dotson, 05/04/25
-
Date of Service: May 05, 2025
Pt c/o mild incisional pain, otherwise feels well
Objective Data
-
PT 18.5 Sec (11.4-14.6) H 05/04/25 19:43
INR 1.53 05/04/25 19:43
APTT 31.6 Sec (23.4-35.0) 05/04/25 19:43
Vital Signs
Vital Signs
Temp Pulse Resp BP Pulse Ox
100.5 F H 100 19 118/83 94
05/05/25 03:00 05/05/25 03:15 05/05/25 03:15 05/05/25 03:00 05/05/25 03:15
CT Intake/Output/Weight
05/04/25 05/04/25 05/05/25
06:59 18:59 06:59
Intake Total 1180.6 / 2687.9 1507.3 / 2687.9
Output Total 900 / 1780 880 / 1780
Balance 280.6 / 907.9 627.3 / 907.9
SaO2: 94 (6L)
Physical Exam
-
General: Awake, Oriented and AOx3
Cardiovascular: Irregular rate & rhythm
Respiratory: Decreased Breath Sounds (at bases, otherwise clear)
Sternum: Stable
Incision: Clean, Dry, Intact and Dressing Intact
Extremities: Other (+trace edema)
Data Reviewed
-
Lab Results: Results Reviewed
Medications: Active Meds Reviewed
Chest X-Ray: Report Reviewed and Image Reviewed
ECG: Report Reviewed and Image Reviewed
--- NOTE | 2025-05-05 04:02 | PTCARENOTE ---
Addendum entered by Larisa Melchor RN 05/05/25 04:20:
Pt converted back to sinus tach, HR low 100s, CT PA at bedside, turned down mAs on pacer to 0.1.
Original Note:
After morning EKG, pt converted to irregular rhythm HR 50-80, SBP 80s, another EKG completed, CT PA at the bedside, put pacer back up rate to 80. Pt now Vpaced w/ some escape beats.
[2025-05-05 04:15] LABS: INR 1.33; PT 16.6 Sec (11.4-14.6)
[2025-05-05 04:16] LABS: Glucose - Point of Care 99 mg/dl (70-99)
[2025-05-05] MEDS: ANCEF 5 IV ×2 (04:19→12:18)
[2025-05-05 04:22] LABS: ALT (SGPT) 20 U/L (0-50); AST (SGOT) 53 U/L (17-59); Albumin 3.2 g/dl (3.5-5.0); Alkaline Phosphatase 34 U/L (38-126); Blood Urea Nitrogen 17 mg/dl (9-20); Calcium 8.9 mg/dl (8.4-10.2); Carbon Dioxide 28 mmol/L (22-30); Chloride 106 mmol/L (98-107); Estimated Creatinine Clearance 89 ml/min; Glucose 99 mg/dl (70-99); Magnesium 1.9 mg/dl (1.6-2.3); Potassium 4.1 mmol/L (3.5-5.1); Sodium 137 mmol/L (135-145); Total Protein 5.0 g/dl (6.3-8.2); eGFR > 60.00
[2025-05-05] MEDS: MAGNESIUM SULFATE 50 IV (04:33)
[2025-05-05 05:00] LABS: Hematocrit 27.5 % (39.0-52.0); Hemoglobin 10.0 g/dL (13.0-18.0); Mean Corp Hgb Conc. 36.4 g/dL (33.0-37.0); Mean Corpuscular Volume 86.8 fL (80.0-94.0); Platelet Count 132 10^3/uL (130-400); Red Cell Dist. Width 13.3 % (11.5-14.5)
[2025-05-05] MEDS: NOVOLIN R INSULIN INFUSION 100 IV (05:06)
[2025-05-05 05:15] LABS: Hepatitis C Antibody Negative (Negative)
[2025-05-05] MEDS: DILAUDID 0.25 MG IV (05:17)
[2025-05-05 06:20] LABS: Glucose - Point of Care 137 mg/dl (70-99)
[2025-05-05] MEDS: CALCIUM GLUCONATE 130 MG IV (06:20)
[2025-05-05] MEDS: TYLENOL 975 MG PO ×3 (06:40→21:06)
--- NOTE | 2025-05-05 07:36 | W.PN.ANS.POP ---
Anesthesia Post Operative
- Anesthesia Post Op Note
Vital Signs Stable-See Nursing Note: Yes (remains on Dobutamine & Levophed)
Airway Patent: Yes
Adequate Pain Control: Yes
Change in Mental Status: No
Current Postoperative Nausea & Vomiting: No
Anesthesia Complications: No
General Anesthetic Recall: No
Unplanned Admission: No
Post Op Hydration Adequate: Yes
[2025-05-05 08:24] LABS: Glucose - Point of Care 88 mg/dl (70-99)
--- NOTE | 2025-05-05 08:27 | PTCARENOTE ---
assumed care of pt from previous shift RN, sinus rhythm on tele w +ectopy, epicardial wires maintained. +peripheral pulses, trace edema. Lungs diminished, pox 93% on 6L NC. Coughing and deep breathing encouraged. +bs, tolerating PO intake. Amin
draining piedad. CTx4 w minimal amount of red drainage. Surgical sites stable. pt states pain is well managed. plan of care reviewed and questions encouraged.
DRIPS:
Levophed 6mcg
Dobutamine 2mcg
Insulin titrated per glycemic protocol
[2025-05-05] MEDS: LEVOPHED 250 IV ×2 (08:35→21:32)
[2025-05-05] MEDS: NEURONTIN 100 MG PO ×3 (09:33→21:05)
[2025-05-05] MEDS: SENOKOT 8.6 MG PO ×2 (09:33→20:26)
[2025-05-05] MEDS: FEOSOL 325 MG PO (09:33)
[2025-05-05] MEDS: WELLBUTRIN XL (24 hour extended release) 150 MG PO (09:33)
[2025-05-05] MEDS: LIDOCAINE 4% PATCH 1 PATCH TOPICAL (09:34)
[2025-05-05] MEDS: PLAVIX 75 MG PO (09:34)
[2025-05-05] MEDS: LOW STRENGTH ASPIRIN 81 MG PO (09:34)
[2025-05-05] MEDS: PROTONIX 40 MG PO (09:34)
[2025-05-05] MEDS: VITAMIN C 500 MG PO (09:34)
[2025-05-05] MEDS: NOVOLOG FLEXPEN SC ×2 (09:35→13:17)
[2025-05-05] MEDS: BACTROBAN 2% OINTMENT 1 APPLIC NASAL ×2 (09:35→20:26)
[2025-05-05] MEDS: ROXICODONE 5 MG PO ×2 (09:52→16:35)
--- NOTE | 2025-05-05 09:56 | PTCARENOTE ---
pt's at bedside, updated.
[2025-05-05 10:55] LABS: Glucose - Point of Care 145 mg/dl (70-99)
[2025-05-05 12:53] LABS: Glucose - Point of Care 151 mg/dl (70-99)
--- NOTE | 2025-05-05 13:02 | PN.DE.MGMTRT ---
Insulin Management
- -
05/05/2025 Diabetes Management Consult
74 year old patient admitted for surgery, CABG x 3 05/04. PMH Diverticulitis, GERD, CAD, triple vessel disease, Nstemi, RA, HTN, Sleep apnea, depression. Prior to admission was taking Januvia 100 mg daily, Jardiance 25 mg daily and metformin 1000
mg BID. A1C 8.6%, cr .8, eGFR > 60.
POD 1 Patient is awake alert and oriented able to discuss diabetes care. Ex at bedside and very supportive. States he has had diabetes 6 or 7 years, follows with primary doctor. He has a meter but never tests his glucose. Discussed at length
importance of glucose control, he seems disinterested, states he isn't changing how he eats. He has attended diabetes classes twice. Ex will try to find monitor and bring in to determine if new one is required or just new RX for strips.
Currently receiving Critical Care glycemic protocol at .4 to 4.5 units of insulin per hour. Will continue insulin infusion today and assess in AM for readiness to transition. Discussed the possibility of requiring insulin, again he seems
disinterested.
Discussed with nurse.
Will follow.
Diabetes History
- -
Type of Diabetes: 2
Pre-Admission Diabetes Regimen
05/04/25 05/04/25 05/05/25
15:22 19:43 03:27
Creatinine 0.6 L 0.7 0.8
Lab Results
Hemoglobin A1c 8.6 % (4.0-5.9) H 04/29/25 08:54
Insulin Pump Settings
IP Diabetes Regimen
05/04/25 05/04/25 05/04/25
15:22 15:27 16:02
Glucose 136 H
POC Glucose 150 H 142 H
05/04/25 05/04/25 05/04/25
17:01 18:04 19:02
Glucose
POC Glucose 122 H 120 H 124 H
05/04/25 05/04/25 05/04/25
19:43 20:07 21:56
Glucose 167 H
POC Glucose 130 H 141 H
05/04/25 05/05/25 05/05/25
23:56 01:02 02:01
Glucose
POC Glucose 141 H 135 H 117 H
05/05/25 05/05/25 05/05/25
03:16 03:27 04:15
Glucose 99
POC Glucose 92 99
05/05/25 05/05/25 05/05/25
06:19 08:23 10:53
Glucose
POC Glucose 137 H 88 145 H
05/05/25
12:51
Glucose
POC Glucose 151 H
Meal type: Breakfast
Meal type: Dinner
Patient Education
[2025-05-05] MEDS: NSS IV (13:07)
--- NOTE | 2025-05-05 14:24 | W.PN.CARDCBS ---
Today's Communication / Plan
-
Overall doing well. Continue aspirin Plavix, and atorvastatin.
Wean dobutamine and Levophed to off.
Remains in sinus rhythm. Continue to hold metoprolol for now
Impression / Plan
-
Impression:
CABG times 08/02/2024 (CANTU to LAD, saphenous vein graft to diagonal, saphenous vein graft)
Hypertension
Paroxysmal atrial fibrillation type 2 diabetes
GERD rheumatoid arthritis
Sleep apnea
Depression
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
Atheroma of the aortic arch
Plan:
Overall remains stable. Remains in sinus rhythm. Continue to wean pressors.
Remains on low-dose dobutamine and Levophed.
Continue aspirin, Plavix, and atorvastatin.
Hemoglobin at 10.0.
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
Subjective
Date of Service: May 05, 2025
Overall doing well. Remains in sinus rhythm. Minimal chest pains
Objective
Labs:
05/05/25 03:27
05/05/25 03:27
Labs
Hgb 10.0 g/dL (13.0-18.0) L 05/05/25 03:27
Hct 27.5 % (39.0-52.0) L 05/05/25 03:27
Plt Count 132 10^3/uL (130-400) 05/05/25 03:27
PT 16.6 Sec (11.4-14.6) H 05/05/25 03:27
INR 1.33 05/05/25 03:27
APTT 31.6 Sec (23.4-35.0) 05/04/25 19:43
Sodium 137 mmol/L (135-145) 05/05/25 03:27
Potassium 4.1 mmol/L (3.5-5.1) 05/05/25 03:27
BUN 17 mg/dl (9-20) 05/05/25 03:27
Creatinine 0.8 mg/dL (0.7-1.3) 05/05/25 03:27
Glucose 99 mg/dl (70-99) 05/05/25 03:27
Vital Signs and I&O:
Vital Signs
Temp Pulse Resp BP Pulse Ox
100.3 F 76 15 104/76 93
05/05/25 14:00 05/05/25 14:00 05/05/25 14:00 05/05/25 14:00 05/05/25 12:00
Vital Signs
Temp Pulse Resp BP Pulse Ox
100.3 F 76 15 104/76 93
05/05/25 14:00 05/05/25 14:00 05/05/25 14:00 05/05/25 14:00 05/05/25 12:00
Intake & Output
05/03/25 05/04/25 05/05/25 05/06/25
06:59 06:59 06:59 06:59
Intake Total 2895.0 / 2895.0 367.7 / 367.7
Output Total 1959 / 1959 335 / 335
Balance 935.0 / 935.0 32.7 / 32.7
[2025-05-05 15:21] LABS: Glucose - Point of Care 112 mg/dl (70-99)
--- NOTE | 2025-05-05 15:28 | PTCARENOTE ---
pt stood at the side of the bed, sbp dropped to 60. pt assisted back into bed, bp recovered. CT SONNY made aware. Midodrine administered as ordered.
--- NOTE | 2025-05-05 16:13 | W.PN.INTV ---
Today's Communication / Plan
Recommendations
- Wean Levophed as tolerated
- Incentive spirometry, continue to wean oxygen
Assessment
-
Patient is a 74-year-old gentleman with history of coronary artery disease, s/p CABG, maze procedure, left atrial appendage exclusion POD # 1
Titrate off pressors per protocol, currently on Levophed at 6 and off dobutamine
ECHO reviewed with normal EF
Management of chest tubes per primary service
Patient successfully extubated, currently saturating 96% on 6 L supplemental oxygen. Work of breathing normal.
CXR with improving right lung atelectasis.
Maintain supplement oxygen as needed
No prior history of pulmonary disease, patient smoked from teenage years up until about 20 years ago. Not on any inhaler therapy
Prior PFTs reviewed, normal spirometry, minimally reduced total lung capacity, preserved FEV1 and normal diffusion capacity.
Can add nebulizers if needed
Aspiration precautions
Encouraged incentive spirometry, OOB/ambulation/early mobility
Advance diet as tolerated following extubation
GI prophylaxis: Protonix
Monitor critical I/O's
Amin/chest tube output
Hb/platelets postoperatively, mild drift
Trend CBC for now
Can transfuse if indicated for Hb <7, plt <50 in surgical patients
DVT prophylaxis including SCDs
Insulin protocol initiated and ongoing
Transition to SQ/off as indicated per team
Other medical diagnoses:
- HTN
- HLD
- DM
- Atrial Fibrillation on AC with Eliquis
- H/o Smoking
- GERD
- H/o KYLEE. Reports compliance with CPAP therapy at home. Follows up with [facility] pulmonary clinic as outpatient.
Critical Care time [41] mins -- The patient is admitted for acute critical illness for the treatment of vital organ failure and/or prevention of further life-threatening conditions. Total care includes time spent in review of history, physical exam,
medications, hemodynamic/ventilator parameters, laboratory data, imaging and discussion with house staff, pharmacy, respiratory therapy, algorithm design engineer, and nursing
Data:
CXR 04/2025: Endotracheal tube tip projects over the midthoracic trachea.
Mildly decreased lung volumes. No pneumothorax. There are opacities projecting over the right mid/upper lung favored to represent atelectasis and a possible small layering pleural effusion.
CT Chest 04/2025: No acute disease of the chest.
Moderate atherosclerotic vascular disease.
PFT 04/2025: FEV1 3.24 L, 100% of predicted, FEV1/FVC of 83. Normal spirometry without evidence of obstruction. Total lung capacity mildly reduced at 70% of predicted, ERV reduced at 57% of predicted suspect due to obesity. Diffusion capacity
normal at 78% of predicted.
ECHO 04/2025: 1. Normal left ventricular chamber size with mild concentric left ventricular hypertrophy. Preserved left ventricular systolic function with ejection fraction 55 to 60%.
2. Mild tricuspid regurgitation.
3. Compared to previous echo from September 2022, no significant change.
LHC 04/2025: 1. Multivessel coronary artery disease with progression of atherosclerotic disease in LAD, diagonal, and RCA as well as chronic total occlusion of OM1 filling via left to left collaterals
2. Preserved LV systolic function
Subjective Dataa
Subjective Data
Date of Service:
Date of Service: May 05, 2025
Subjective:
Patient comfortably lying in bed in no acute distress.
Review of Systems
Genitourinary: Other (All 14 systems reviewed and negative except as stated above in the history of present illness.)
Objective Data
Data Reviewed
Vital Signs / I&O / Oxygen:
Vital Signs
Temp Pulse Resp BP Pulse Ox
100 F 73 19 131/73 96
05/05/25 15:00 05/05/25 15:15 05/05/25 15:15 05/05/25 15:06 05/05/25 15:15
Intake and Output
05/04/25 05/05/25 05/06/25
06:59 06:59 06:59
Intake Total 2895.0 / 2895.0 415.2 / 415.2
Output Total 1959 / 1959 445 / 445
Balance 935.0 / 935.0 -29.8 / -29.8
SaO2 [CPAP] 95
SaO2 [SIMV] 98
SaO2 96
Nasal Cannula flow liters per 6
minute
Physical Exam
General: Comfortable
HEENT: Normocephalic
Cardiovascular: S1-S2 and Peripheral Edema
Respiratory: Clear
GI: Soft and Non Distended
Neurology: Awake, Alert and Oriented
Skin: Warm
Labs/Micro/Reports
Lab Data
05/05/25 03:27
05/05/25 03:27
Laboratory Results
05/04/25 05/05/25 05/05/25
19:43 00:09 03:27
PT 18.5 H 16.6 H
INR 1.53 1.33
APTT 31.6
pH 7.35 7.41
pCO2 46 41
pO2 83 85
HCO3 25.4 26.0
O2 Delivery Level
[2025-05-05] MEDS: NOVOLOG FLEXPEN 4 UNITS SC (16:28)
[2025-05-05] MEDS: LIPITOR 80 MG PO (16:35)
[2025-05-05 18:14] LABS: Glucose - Point of Care 108 mg/dl (70-99)
[2025-05-05 18:14] LABS: Glucose - Point of Care 108 mg/dl (70-99)
[2025-05-05] MEDS: REMOVE LIDOCAINE PATCH 1 PATCH REMOVE (20:26)
[2025-05-05] MEDS: DILAUDID 0.5 MG IV (20:27)
--- NOTE | 2025-05-05 20:30 | PTCARENOTE ---
Assumed care of pt from dayshift RN. Walking rounds completed. Pt AAOx4. Appropriate. SR w/ occasional PVCs on the tele monitor. HR 70s-80s. Temporary epicardial v-wire x2 intact. One V wire insulated, other plugged into box - VVI 80/0.1/0.8. BP
90-120s/50-60s. Levo infusing. Palpable pulses throughout. +1 B/L LE edema, trace B/L hand edema present. Pt on 6 L NC. POX 92-93%. Mediastinal CTx2 and R/L pleural CT to -20 suction, no airleaks noted, and output as documented. Deep breathing and
IS encouraged. Abdomen soft. +BSx4. Amin catheter intact and draining yellow urine. All surgical sites stable. R IJ cordis w/ CVP intact. Right radial a-line intact. PIVx1 flushed. Pt repositioned in bed as needed. Pain medication as documented in
MAR. Glycemic protocol followed. See worklist for full nursing assessment and interventions. Call pastor within reach.
[2025-05-05 20:34] LABS: Glucose - Point of Care 149 mg/dl (70-99)
[2025-05-05 22:13] LABS: Glucose - Point of Care 86 mg/dl (70-99)
--- NOTE | 2025-05-05 23:29 | PTCARENOTE ---
Pt reassessed. No acute changes in assessment. Pt is SR w/ PVCs on the tele monitor. HR 70s. Temporary V-wire settings unchanged. BPs 90-110s/50-60s. Levo titrated down as documented. CVP ~11. Pt 92-93% on 6 L NC. Denies SOB. Deep breathing
encouraged. CTx4 assessment unchanged. Amin catheter intact and draining yellow urine. All surgical sites stable. Pt repositioned as needed. Glycemic protocol followed. Call pastor within reach.
[2025-05-05 23:59] LABS: Glucose - Point of Care 105 mg/dl (70-99)
[2025-05-06] VITALS (26 sets, daily range): BP systolic 87–122; BP diastolic 56–109; PULSE 77–86; O2SAT 90–97; BMI 27.6
[2025-05-06 02:16] LABS: Glucose - Point of Care 105 mg/dl (70-99)
[2025-05-06 03:57] LABS: Hematocrit 24.8 % (39.0-52.0); Hemoglobin 8.6 g/dL (13.0-18.0); Mean Corp Hgb Conc. 34.7 g/dL (33.0-37.0); Mean Corpuscular Volume 87.9 fL (80.0-94.0); Platelet Count 121 10^3/uL (130-400); Red Cell Dist. Width 13.9 % (11.5-14.5)
[2025-05-06 04:04] LABS: Blood Urea Nitrogen 19 mg/dl (9-20); Calcium 8.7 mg/dl (8.4-10.2); Carbon Dioxide 28 mmol/L (22-30); Chloride 103 mmol/L (98-107); Estimated Creatinine Clearance 89 ml/min; Glucose 104 mg/dl (70-99); Magnesium 2.1 mg/dl (1.6-2.3); Potassium 3.8 mmol/L (3.5-5.1); Sodium 134 mmol/L (135-145); eGFR > 60.00
[2025-05-06 04:06] LABS: Glucose - Point of Care 104 mg/dl (70-99)
--- NOTE | 2025-05-06 04:50 | PTCARENOTE ---
Pt reassessed. No acute changes in assessment. Pt is SR w/ PVCs on the tele monitor. HR 70s. Temporary V-wire settings unchanged. BPs 90-110s/50-60s. Levo titrated down as documented. Off ~0400. CVP ~11. Pt 91-95% on 6 L NC. Denies SOB. Deep
breathing encouraged. CTx4 assessment unchanged, output as documented. Amin catheter intact and draining yellow urine. All surgical sites stable. Pt repositioned as needed. Glycemic protocol followed. Call pastor within reach. Labs drawn and sent.
Midodrine dose early.
[2025-05-06] MEDS: TYLENOL 975 MG PO ×3 (05:02→22:39)
[2025-05-06] MEDS: KCL 20 MEQ PO (05:03)
[2025-05-06] MEDS: NOVOLIN R INSULIN INFUSION 100 IV (05:07)
--- NOTE | 2025-05-06 05:41 | W.PN.CT ---
Today's Communication / Plan
-
-pod #2
-no issues overnight
-Dobutamine dcd 05/05
-mVO2 54. Drips: Levo was at 4 and now is off, Insulin
-CT outputs: 2 meds 120/210, 2 pleur 90/190 in 12/24 hrs
-got 10 mg Midodrine at 5 am and BP is ok 114/60
-Tm 100.5, pOx 91-92% on 6L with occasional desat to 88%. Need to encourage IS - 750-1000cc so far
-chest PT
-pt had new RBBB postop 05/04 and LBBB on 05/05- holding BB and Amio. Follow ECG
-gave 20 po KCL for K 3.8
-encourage OOB
Assessment / Plan
-
Assessment:
-S/p Median sternotomy/CABG x 3 (SUSANNA to LAD, GSV to D1, GSV to distal RCA)/Endoscopic harvest/prep of RLE GSV/[facility] MAZE procedure/ELAA/Repair of minor epicardial adipose avulsion/Re-establishment of CPB w/ repair of (late) small arterial bleed
from prior epicardial adipose avulsion, by Dr. Dotson, 05/04/25, pod#2
-Severe Multivessel CAD
-USA
-Hx CAD
-Hx NSTEMI (0.914) S/P LHC showed an occluded OM branch of LCx filling via left to left collaterals, 03/21/2018
-PAF (on Eliquis @ home)
-LVEF 60-65% per intraop ROSALES
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
-T2DM (A1C 8.6)
-HTN
-GERD
-Rheumatoid Arthritis
-KYLEE
-Depression
-S/P Colon resection, 2014
-S/P Inguinal hernia repair
-S/P Appendectomy
-S/P Vasectomy, 1982
-Acute postop blood loss/Anemia (transfused 1u PRBC)
-Acute postop coagulopathy (transfused 2u FFP's)
-Acute postop RBBB with LAFB seen postop on 05/04. Noted to have acute LBBB on 05/05
-Acute postop bradycardia 40's S/P dobutamine
-Acute postop atelectasis
-Acute postop hypovolemia with subsequent hypervolemia
Discussed patient care with: Nursing and Care Team
Subjective
Procedure
Median sternotomy/CABG x 3 (SUSANAN to LAD, GSV to D1, GSV to distal RCA)/Endoscopic harvest/prep of RLE GSV/[facility] MAZE procedure/ELAA/Repair of minor epicardial adipose avulsion/Re-establishment of CPB w/ repair of (late) small arterial bleed
from prior epicardial adipose avulsion, by Dr. Dotson, 05/04/25
-
Date of Service: May 06, 2025
Objective Data
-
Lab Results
05/06/25 03:20
05/06/25 03:20
PT 16.6 Sec (11.4-14.6) H 05/05/25 03:27
INR 1.33 05/05/25 03:27
APTT 31.6 Sec (23.4-35.0) 05/04/25 19:43
Vital Signs
Vital Signs
Temp Pulse Resp BP Pulse Ox
98 F 81 22 107/64 94
05/06/25 04:00 05/06/25 05:03 05/06/25 05:00 05/06/25 05:03 05/06/25 05:00
CT Intake/Output/Weight
05/05/25 05/05/25 05/06/25
06:59 18:59 06:59
Intake Total 1714.4 / 2895.0 609.7 / 851.6 241.9 / 851.6
Output Total 1060 / 1960 555 / 1165 610 / 1165
Balance 654.4 / 935.0 54.7 / -313.4 -368.1 / -313.4
SaO2: 94
Physical Exam
-
General: Awake and AOx3
Cardiovascular: Regular rate & rhythm, No Murmurs and No Rub
Respiratory: Decreased Breath Sounds
Sternum: Stable
Incision: Clean, Dry and Intact
Extremities: No Edema (2+ DPs b/l)
Abdomen: soft, nontender, nondistended, + bowel sounds
Data Reviewed
-
Lab Results: Results Reviewed
Medications: Active Meds Reviewed
Chest X-Ray: Report Reviewed and Image Reviewed
ECG: Report Reviewed and Image Reviewed
[2025-05-06 06:18] LABS: Glucose - Point of Care 94 mg/dl (70-99)
[2025-05-06 07:09] LABS: Glucose - Point of Care 114 mg/dl (70-99)
[2025-05-06 08:00] LABS: Glucose - Point of Care 111 mg/dl (70-99)
[2025-05-06] MEDS: LIDOCAINE 4% PATCH 1 PATCH TOPICAL (08:03)
[2025-05-06] MEDS: VITAMIN C 500 MG PO (08:03)
[2025-05-06] MEDS: SENOKOT 8.6 MG PO ×2 (08:03→20:23)
[2025-05-06] MEDS: LOW STRENGTH ASPIRIN 81 MG PO (08:03)
[2025-05-06] MEDS: NEURONTIN 100 MG PO ×3 (08:03→22:39)
[2025-05-06] MEDS: WELLBUTRIN XL (24 hour extended release) 150 MG PO (08:03)
[2025-05-06] MEDS: FEOSOL 325 MG PO (08:03)
[2025-05-06] MEDS: PROTONIX 40 MG PO (08:03)
[2025-05-06] MEDS: PLAVIX 75 MG PO (08:03)
[2025-05-06] MEDS: BACTROBAN 2% OINTMENT 1 APPLIC NASAL ×2 (08:04→20:24)
[2025-05-06 09:06] LABS: Glucose - Point of Care 127 mg/dl (70-99)
--- NOTE | 2025-05-06 09:25 | PTCARENOTE ---
Patient received from night supervisor RN; AAOx3, responds spontaneously to RN and follows commands; Slow speech at times; [place]; Flat, forgetful; VSS; SR with PVC's on monitor; Epicardial V-wires present - one insulated to chest and other connected to
temporary pacemaker with settings 80/0.1/0.8; Friction rub present; Trace generalized anasarca; +1 DP and +2 radial pulses; Shallow respirations; Lungs diminished at bases; SpO2 90-94% on 6L NC; IS 1000 ml; Occasional weak, non-productive cough;
CTx4 connected to -20 cm wall suction draining serosanguineous drainage - no air leak, tidaling, or crepitus noted; Poor appetite this AM; Amin catheter draining clear, yellow urine; Unsteady gait in room; Surgical sites intact; RIJ Cordis with KVO
infusing and SLIC present, right radial A-line in place - all lines zeroed and leveled; PIVx1 - #18 left hand; Insulin infusing - see nursing documentation for further details; See nursing documentation for further information
[2025-05-06] MEDS: GLUCOPHAGE 1000 MG PO ×2 (09:47→16:03)
[2025-05-06] MEDS: FARXIGA 10 MG PO (09:47)
[2025-05-06] MEDS: LASIX 40 MG IV (09:47)
[2025-05-06] MEDS: JANUVIA 100 MG PO (09:47)
[2025-05-06 10:06] LABS: Glucose - Point of Care 115 mg/dl (70-99)
[2025-05-06 10:56] LABS: Glucose - Point of Care 116 mg/dl (70-99)
[2025-05-06] MEDS: NOVOLOG FLEXPEN 4 UNITS SC (10:58)
--- NOTE | 2025-05-06 12:30 | PTCARENOTE ---
A-line and Pleural Chest tubes d/c'd; IV Lasix 40 mg ordered and given; Patient ambulating in hallways with cardiac rehab and RN
--- NOTE | 2025-05-06 12:44 | PN.DE.MGMTRT ---
Insulin Management
- -
05/06/2025 Diabetes Management Consult Follow up
74 year old patient admitted for surgery, CABG x 3 05/04. PMH Diverticulitis, GERD, CAD, triple vessel disease, Nstemi, RA, HTN, Sleep apnea, depression. Prior to admission was taking Januvia 100 mg daily, Jardiance 25 mg daily and metformin 1000
mg BID. A1C 8.6%, cr .8, eGFR > 60.
POD 2 Patient is awake alert and oriented able to discuss diabetes care. Out of bed in chair. States he has had diabetes 6 or 7 years, follows with primary doctor. Currently receiving Critical Care glycemic protocol at .4 to 2.3 units of insulin per
hour. Will continue insulin infusion today until after lunch. Will start Farxiga 10 mg daily, 1000 mg metformin BID and Januvia 100 mg daily now, with moderate corrective insulin.
He has a OneTouch Verio meter but never tests his glucose. Strips are not . Discussed at length importance of glucose control, he seems disinterested, states he isn't changing how he eats. He has attended diabetes classes twice.
Discussed the possibility of requiring insulin, again he seems disinterested.
Discussed with nurse.
Will follow.
Diabetes History
- -
Type of Diabetes: 2
Pre-Admission Diabetes Regimen
05/06/25
03:20
Creatinine 0.8
Lab Results
Hemoglobin A1c 8.6 % (4.0-5.9) H 04/29/25 08:54
Insulin Pump Settings
IP Diabetes Regimen
05/05/25 05/05/25 05/05/25
12:51 15:20 16:23
Glucose
POC Glucose 151 H 112 H 108 H
05/05/25 05/05/25 05/05/25
18:10 20:33 22:12
Glucose
POC Glucose 108 H 149 H 86
05/05/25 05/06/25 05/06/25
23:58 02:15 03:20
Glucose 104 H
POC Glucose 105 H 105 H
05/06/25 05/06/25 05/06/25
04:04 06:16 07:08
Glucose
POC Glucose 104 H 94 114 H
05/06/25 05/06/25 05/06/25
07:59 09:05 10:03
Glucose
POC Glucose 111 H 127 H 115 H
05/06/25
10:55
Glucose
POC Glucose 116 H
Meal type: Dinner
Amount consumed: 75%
Patient Education
[2025-05-06 13:08] LABS: Glucose - Point of Care 126 mg/dl (70-99)
[2025-05-06] MEDS: NOVOLOG FLEXPEN SC (13:15)
[2025-05-06] MEDS: NSS IV (13:15)
--- NOTE | 2025-05-06 15:13 | W.PN.INTV ---
Today's Communication / Plan
Recommendations
- Wean insulin off per protocol
- Night Time Babysitter service will sign off when patient is transferred out of ICU
Assessment
-
Patient is a 74-year-old gentleman with history of coronary artery disease, s/p CABG, maze procedure, left atrial appendage exclusion POD # 2
Titrate off pressors per protocol, currently off Levophed
ECHO reviewed with normal EF
Management of chest tubes per primary service
Patient successfully extubated, currently saturating 92% on 6 L supplemental oxygen. Work of breathing normal.
CXR with low long volumes
Maintain supplement oxygen as needed
No prior history of pulmonary disease, patient smoked from teenage years up until about 20 years ago. Not on any inhaler therapy
Prior PFTs reviewed, normal spirometry, minimally reduced total lung capacity, preserved FEV1 and normal diffusion capacity.
Can add nebulizers if needed
Aspiration precautions
Encouraged incentive spirometry, OOB/ambulation/early mobility
Advance diet as tolerated following extubation
GI prophylaxis: Protonix
Monitor critical I/O's
Amin/chest tube output
Hb/platelets postoperatively, mild drift
Trend CBC for now
Can transfuse if indicated for Hb <7, plt <50 in surgical patients
DVT prophylaxis including SCDs
Insulin protocol initiated and ongoing
Transition to SQ/off as indicated per team
Other medical diagnoses:
- HTN
- HLD
- DM
- Atrial Fibrillation on AC with Eliquis
- H/o Smoking
- GERD
- H/o KYLEE. Reports compliance with CPAP therapy at home. Follows up with [facility] pulmonary clinic as outpatient.
Critical Care time [40] mins -- The patient is admitted for acute critical illness for the treatment of vital organ failure and/or prevention of further life-threatening conditions. Total care includes time spent in review of history, physical exam,
medications, hemodynamic/ventilator parameters, laboratory data, imaging and discussion with house staff, pharmacy, respiratory therapy, machine icer, and nursing
Data:
CXR 04/2025: Endotracheal tube tip projects over the midthoracic trachea.
Mildly decreased lung volumes. No pneumothorax. There are opacities projecting over the right mid/upper lung favored to represent atelectasis and a possible small layering pleural effusion.
CT Chest 04/2025: No acute disease of the chest.
Moderate atherosclerotic vascular disease.
PFT 04/2025: FEV1 3.24 L, 100% of predicted, FEV1/FVC of 83. Normal spirometry without evidence of obstruction. Total lung capacity mildly reduced at 70% of predicted, ERV reduced at 57% of predicted suspect due to obesity. Diffusion capacity
normal at 78% of predicted.
ECHO 04/2025: 1. Normal left ventricular chamber size with mild concentric left ventricular hypertrophy. Preserved left ventricular systolic function with ejection fraction 55 to 60%.
2. Mild tricuspid regurgitation.
3. Compared to previous echo from September 2022, no significant change.
[facility] 04/2025: 1. Multivessel coronary artery disease with progression of atherosclerotic disease in LAD, diagonal, and RCA as well as chronic total occlusion of OM1 filling via left to left collaterals
2. Preserved LV systolic function
Subjective Dataa
Subjective Data
Date of Service:
Date of Service: May 06, 2025
Subjective:
Comfortably sitting in bed, no acute distress
Review of Systems
Genitourinary: Other (No new symptoms reported )
Objective Data
Data Reviewed
Vital Signs / I&O / Oxygen:
Vital Signs
Temp Pulse Resp BP Pulse Ox
98.1 F 86 15 101/64 91
05/06/25 11:00 05/06/25 14:45 05/06/25 14:00 05/06/25 14:41 05/06/25 14:00
Intake and Output
05/05/25 05/06/25 05/07/25
06:59 06:59 06:59
Intake Total 2895.0 / 2895.0 863.4 / 874.0 577.3 / 577.3
Output Total 1959 / 1959 1205 / 1295 1395 / 1395
Balance 935.0 / 935.0 -341.6 / -421.0 -817.7 / -817.7
SaO2 [CPAP] 95
SaO2 [SIMV] 98
SaO2 91
Nasal Cannula flow liters per 6
minute
Physical Exam
General: Comfortable
HEENT: Normocephalic
Cardiovascular: S1-S2 and Peripheral Edema
Respiratory: Clear
GI: Soft and Non Distended
Neurology: Awake, Alert and Oriented
Skin: Warm
Labs/Micro/Reports
Lab Data
05/06/25 03:20
05/06/25 03:20
--- NOTE | 2025-05-06 15:15 | W.PN.UPDATE ---
Update Note
Progress Note Update
Reviewed pre and postoperative ECG's at Dr. Dotson' behest and discussed his intraoperative course.
Briefly-he was noted to have a short period of asystole coming off pump with unloading/reloading of the heart with brief reinstitution of CBP to repair epicardial fat avulsion. Otherwise doing well after 3V bypass/MAZE/SARA clip.
Preoperative noted to have borderline prolonged QRS duration. Postoperatively had 1st degree AV delay and bifascicular block immediately post op. Day 1 had initial Mobitz 1 type 2 AV block with RBBB, then sinus 1:1 AV conduction with LBBB. Day 2
recovery of conduction.
Impression: ECG's reflect progressive recovery of each bundle although each bundle recovered on different timelines. First two postoperative ECG's reflect initial RBBB with LBB conduction although with marked AV delay. With subsequent development of
postoperative edema (commonly on postoperative days 1-3) ECG demonstrates actual progression to Mobitz 1 type 2 on POD#1 second ECG reflecting worsening LBB conduction but still intact. Then on third postoperative ECG the RBB has recovered and is
conducting 1:1 and the LBB is functionally blocking at the faster rates.
By the morning of postoperative day 2 both bundles have recovered and are conducting 1:1 at slower rates.
-Would avoid AV gustabo agent/amiodarone
-The bundle branch issues (and asystole/sinus arrest immediately off pump) likely reflect transient ischemia from pump run/anesthesia and should recover and reflect a different physiologic/clinical state than an outpatient/inpatient without cardiac
surgery who would require pacing with alternating bundles
-will follow closely with you. if we see further issues with conduction then would favor pacing. Otherwise outpatient rhythm star monitor should be considered.
[2025-05-06 15:24] LABS: Glucose - Point of Care 108 mg/dl (70-99)
[2025-05-06] MEDS: LIPITOR 80 MG PO (16:03)
[2025-05-06 16:06] LABS: Glucose - Point of Care 154 mg/dl (70-99)
--- NOTE | 2025-05-06 16:07 | W.PN.CARDCBS ---
Addendum entered and electronically signed by Cedric Ambrocio DO 05/06/25 17:25:
I saw and examined the patient.
The Pipe Assembly Worker's note was reviewed and I agree with the note.
Comment:
Plan:
Continues to improve with regards to postop CABG
Transient left bundle/right bundle branch block currently sinus rhythm with no heart block
Continue to hold beta-arvin and amiodarone
Appreciate EP input
No current plan for pacemaker however low threshold for pacer with recurrent bundle branch block
Check echo in a.m.
Diurese as blood pressure will allow.
Discussed with nursing
Original Note:
Today's Communication / Plan
-
Continue postop care
Follow rhythm closely
Holding beta-arvin/amiodarone for now
follow up echo in AM
Diurese as able
Impression / Plan
-
Impression:
MV CAD s/p CABG x3 CANTU to LAD, saphenous vein graft to diagonal, saphenous vein graft 05/04/25
Transient post op RBBB and LBBB
Hypertension
Paroxysmal atrial fibrillation
type 2 diabetes
GERD
rheumatoid arthritis
Sleep apnea
Depression
Atheroma of the aortic arch
Plan:
-s/p CABG x3 CANTU to LAD, saphenous vein graft to diagonal, saphenous vein graft 05/04/25
-in SR on review of tele. noted to have both transient RBBB and LBBB post surgically. both presently resolved. follow rhythm closely. appreciate EP input. may require monitoring upon DC. continue to hold BB and amio for now
-follow up echo in AM
-off pressors, but BPs marginal at times, requiring midodrine. wean as able.
-continue asa, plavix for now. was on eliquis prior to admission. hgb 8.6
-With edema noted on exam. Would diurese as able
-continue post op care
-was on coreg and norvasc pre op
-d/w CT surgery
Progress Note - Financial Administrative Assistant
Subjective
Date of Service: May 06, 2025
No significant chest pain or shortness of breath. Overall feeling well. No present lightheadedness or dizziness
Objective
Labs:
05/06/25 03:20
05/06/25 03:20
Labs
Hgb 8.6 g/dL (13.0-18.0) L 05/06/25 03:20
Hct 24.8 % (39.0-52.0) L 05/06/25 03:20
Plt Count 121 10^3/uL (130-400) L 05/06/25 03:20
PT 16.6 Sec (11.4-14.6) H 05/05/25 03:27
INR 1.33 05/05/25 03:27
APTT 31.6 Sec (23.4-35.0) 05/04/25 19:43
Sodium 134 mmol/L (135-145) L 05/06/25 03:20
Potassium 3.8 mmol/L (3.5-5.1) 05/06/25 03:20
BUN 19 mg/dl (9-20) 05/06/25 03:20
Creatinine 0.8 mg/dL (0.7-1.3) 05/06/25 03:20
Glucose 104 mg/dl (70-99) H 05/06/25 03:20
Vital Signs and I&O:
Vital Signs
Temp Pulse Resp BP Pulse Ox
98.5 F 86 16 103/68 91
05/06/25 15:49 05/06/25 15:45 05/06/25 15:49 05/06/25 15:00 05/06/25 15:49
Vital Signs
Temp Pulse Resp BP Pulse Ox
98.5 F 86 16 103/68 91
05/06/25 15:49 05/06/25 15:45 05/06/25 15:49 05/06/25 15:00 05/06/25 15:49
Intake & Output
05/04/25 05/05/25 05/06/25 05/07/25
07:59 07:59 07:59 07:59
Intake Total 2895.0 / 2943.7 874.0 / 886.3 579.3 / 579.3
Output Total 1959 / 2054 1295 / 1335 1325 / 1325
Balance 935.0 / 888.7 -421.0 / -448.7 -745.7 / -745.7
Physical Exam
Physical Exam
GEN: No distress, awake, alert, oriented x3. Sitting in chair
HEENT: supple, anicteric, mmm, EOMI
LUNGS: Few crackles bilateral bases, no wheezes
CV: Reg, S1/S2, no murmur
ABD: soft, BS+, NT/ND
EXT: No cyanosis, clubbing. 1+ edema of bilateral upper extremity, trace of bilateral lower extremity
NEURO: Gross non-focal
SKIN: Warm, pink, dry. No rash
[2025-05-06] MEDS: NOVOLOG FLEXPEN-MODERATE RESISTANCE 1 UNITS SC (17:01)
--- NOTE | 2025-05-06 17:30 | PTCARENOTE ---
PT/OT ambulating with patient in hallways; Insulin gtt discontinued; Amin discontinued and patient due to void at 2310
[2025-05-06] MEDS: REMOVE LIDOCAINE PATCH 1 PATCH REMOVE (20:23)
[2025-05-06] MEDS: NSS 500 IV (20:25)
--- NOTE | 2025-05-06 21:00 | PTCARENOTE ---
Assumed care of pt from dayshift RN. Walking rounds completed. Pt AAOx4. Appropriate. SR w/ occasional PVCs on the tele monitor. HR 70s-80s. Temporary epicardial v-wire x2 intact. One V wire insulated, other plugged into box. Palpable pulses
throughout. Trace generalized edema. Pt on 6 L NC. POX 92-97%. Mediastinal CTx2 to -20 suction, no airleaks noted, and output as documented. Deep breathing and IS encouraged. Abdomen soft. +BSx4. Pt DTV. All surgical sites stable. R IJ cordis and
PIV intact. Pt repositioned in bed as needed. See worklist for full nursing assessment and interventions. Call pastor within reach.
[2025-05-07] VITALS (11 sets, daily range): BP systolic 90–125; BP diastolic 59–80; PULSE 86; O2SAT 96; BMI 26.8
--- NOTE | 2025-05-07 00:24 | PTCARENOTE ---
Pt reassessed. No acute changes in assessment. Pt is SR w/ PVCs on the tele monitor. HR 70s. Temporary V-wire settings unchanged. BP stable. Pt 91-92% on home CPAP machine w/ additional 4 L NC. CTx2 assessment unchanged. Pt voided x2 in urinal. All
surgical sites stable. Pt repositioned as needed. No c/o pain at this time. Call pastor within reach.
--- NOTE | 2025-05-07 04:00 | PTCARENOTE ---
Pt reassessed. No acute changes in assessment. Pt is SR w/ PVCs on the tele monitor. HR 70s. Temporary V-wire settings unchanged. BP 109/73. MAP 85. 98% on 6 L NC. CTx2 assessment unchanged, output as documented. Pt voiding w/ urinal. All surgical
sites stable. Pt repositioned as needed. Call pastor within reach. Labs drawn and sent.
[2025-05-07 04:11] LABS: Hematocrit 24.6 % (39.0-52.0); Hemoglobin 8.6 g/dL (13.0-18.0); Mean Corp Hgb Conc. 35.0 g/dL (33.0-37.0); Mean Corpuscular Volume 89.8 fL (80.0-94.0); Platelet Count 113 10^3/uL (130-400); Red Cell Dist. Width 13.7 % (11.5-14.5)
[2025-05-07 04:29] LABS: Blood Urea Nitrogen 26 mg/dl (9-20); Calcium 8.3 mg/dl (8.4-10.2); Carbon Dioxide 29 mmol/L (22-30); Chloride 98 mmol/L (98-107); Estimated Creatinine Clearance 71 ml/min; Glucose 155 mg/dl (70-99); Magnesium 2.1 mg/dl (1.6-2.3); Potassium 3.9 mmol/L (3.5-5.1); Sodium 132 mmol/L (135-145); eGFR > 60.00
[2025-05-07] MEDS: TYLENOL 975 MG PO ×3 (05:41→21:42)
[2025-05-07] MEDS: KCL 20 MEQ PO (05:41)
--- NOTE | 2025-05-07 07:31 | W.PN.CT ---
Today's Communication / Plan
-
-pod #3
-no issues overnight
-no drips
-CT outputs: 2 meds 30/ in 12/24 hrs
-appreciate EP and Cardiology input regarding bundle branch blocks postop. Noted recommendation to hold BB and Amio and consider Rhythm star monitor outpatient. Monitor rhythm
-BB and Amio have been on hold postop also for low BP. Currently, on Midodrine 5 tid
-encourage IS - pOx 95% on 6L- wean off as tolerated
-diuresed with 40 iv Lasix. UO 1370. wt is up 7 lbs- continue Lasix
-maintain pw, Cordis
-continue PT/OT. Noted recommendation for acute rehab
-ambulate, encourage IS
Assessment / Plan
-
Assessment:
-S/p Median sternotomy/CABG x 3 (SUSANNA to LAD, GSV to D1, GSV to distal RCA)/Endoscopic harvest/prep of RLE GSV/Encompass MAZE procedure/ELAA/Repair of minor epicardial adipose avulsion/Re-establishment of CPB w/ repair of (late) small arterial bleed
from prior epicardial adipose avulsion, by Dr. Dotson, 05/04/25, pod#3
-Severe Multivessel CAD
-[place]
-Hx CAD
-Hx NSTEMI (0.914) S/P LHC showed an occluded OM branch of LCx filling via left to left collaterals, 03/21/2018
-PAF (on Eliquis @ home)
-LVEF 60-65% per intraop ROSALES
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
-T2DM (A1C 8.6)
-HTN
-GERD
-Rheumatoid Arthritis
-KYLEE
-Depression
-S/P Colon resection, 2014
-S/P Inguinal hernia repair
-S/P Appendectomy
-S/P Vasectomy, 1982
-Acute postop blood loss/Anemia (transfused 1u PRBC)
-Acute postop coagulopathy (transfused 2u FFP's)
-Acute postop RBBB with LAFB seen postop on 05/04. Noted to have acute LBBB on 05/05
-Acute postop bradycardia 40's S/P dobutamine
-Acute postop atelectasis/ pulmonary insufficiency
-Acute postop hypovolemia with subsequent hypervolemia
Discussed patient care with: Nursing and Care Team
Subjective
Procedure
Median sternotomy/CABG x 3 (SUSANNA to LAD, GSV to D1, GSV to distal RCA)/Endoscopic harvest/prep of RLE GSV/Encompass MAZE procedure/ELAA/Repair of minor epicardial adipose avulsion/Re-establishment of CPB w/ repair of (late) small arterial bleed
from prior epicardial adipose avulsion, by Dr. Dotson, 05/04/25
-
Date of Service: May 07, 2025
Objective Data
-
PT 16.6 Sec (11.4-14.6) H 05/05/25 03:27
INR 1.33 05/05/25 03:27
APTT 31.6 Sec (23.4-35.0) 05/04/25 19:43
Vital Signs
Vital Signs
Temp Pulse Resp BP Pulse Ox
98 F 75 16 90/59 91
05/06/25 20:14 05/07/25 00:19 05/07/25 00:19 05/07/25 00:19 05/07/25 00:19
CT Intake/Output/Weight
05/06/25 05/06/25 05/07/25
06:59 18:59 06:59
Intake Total 253.7 / 874.0 589.9 / 639.9 50 / 639.9
Output Total 650 / 1295 1515 / 1835 320 / 1835
Balance -396.3 / -421.0 -925.1 / -1195.1 -270 / -1195.1
SaO2: 91
Physical Exam
-
General: Awake and AOx3
Cardiovascular: Regular rate & rhythm, No Murmurs and No Rub
Respiratory: Decreased Breath Sounds
Sternum: Stable
Incision: Clean, Dry and Intact
Extremities: No Edema (2+ DPs b/l)
Data Reviewed
-
Lab Results: Results Reviewed
Medications: Active Meds Reviewed
Chest X-Ray: Report Reviewed and Image Reviewed
ECG: Report Reviewed and Image Reviewed
--- NOTE | 2025-05-07 08:00 | PN.DE.MGMTRT ---
Insulin Management
- -
05/07/2025 Diabetes Management Consult Follow up
74 year old patient admitted for surgery, CABG x 3 05/04. PMH Diverticulitis, GERD, CAD, triple vessel disease, Nstemi, RA, HTN, Sleep apnea, depression. Prior to admission was taking Januvia 100 mg daily, Jardiance 25 mg daily and metformin 1000
mg BID. A1C 8.6%, cr 1, eGFR > 60.
POD 3 Patient is awake alert and oriented able to discuss diabetes care. Resting in bed. States he has had diabetes 6 or 7 years, follows with primary doctor. Yesterday transitioned from Critical Care glycemic protocol at 2pm. Farxiga 10 mg
daily, 1000 mg metformin BID and Januvia 100 mg daily resumed in AM yesterday, with moderate corrective insulin.
05/07 Fasting glucose today 155. Glucose range yesterday 108 to 154 after insulin infusion stopped. Will continue Farxiga, metformin and januvia with moderate corrective insulin.
He has a OneTouch Verio meter but never tests his glucose. Strips are not . Discussed at length importance of glucose control, he seems disinterested, states he isn't changing how he eats. He has attended outpatient diabetes classes twice.
Discussed the possibility of requiring insulin, again he seems disinterested.
Discussed with nurse.
Will follow.
Diabetes History
- -
Type of Diabetes: 2
Pre-Admission Diabetes Regimen
05/07/25
03:55
Creatinine 1.0
Lab Results
Hemoglobin A1c 8.6 % (4.0-5.9) H 04/29/25 08:54
Insulin Pump Settings
IP Diabetes Regimen
05/06/25 05/06/25 05/06/25
07:59 09:05 10:03
Glucose
POC Glucose 111 H 127 H 115 H
05/06/25 05/06/25 05/06/25
10:55 13:05 15:23
Glucose
POC Glucose 116 H 126 H 108 H
05/06/25 05/07/25
16:05 03:55
Glucose 155 H
POC Glucose 154 H
Meal type: Dinner
Amount consumed: 50%
Patient Education
[2025-05-07 08:21] LABS: Glucose - Point of Care 218 mg/dl (70-99)
[2025-05-07] MEDS: LIDOCAINE 4% PATCH TOPICAL (08:29)
[2025-05-07] MEDS: NEURONTIN 100 MG PO ×3 (08:37→21:42)
[2025-05-07] MEDS: SENOKOT 8.6 MG PO ×2 (08:37→19:46)
[2025-05-07] MEDS: BACTROBAN 2% OINTMENT 1 APPLIC NASAL ×2 (08:37→19:46)
[2025-05-07] MEDS: LASIX 40 MG IV (08:37)
[2025-05-07] MEDS: FARXIGA 10 MG PO (08:38)
[2025-05-07] MEDS: WELLBUTRIN XL (24 hour extended release) 150 MG PO (08:38)
[2025-05-07] MEDS: JANUVIA 100 MG PO (08:38)
[2025-05-07] MEDS: GLUCOPHAGE 1000 MG PO ×2 (08:38→16:01)
[2025-05-07] MEDS: VITAMIN C 500 MG PO (08:38)
[2025-05-07] MEDS: PLAVIX 75 MG PO (08:38)
[2025-05-07] MEDS: PROTONIX 40 MG PO (08:38)
[2025-05-07] MEDS: LOW STRENGTH ASPIRIN 81 MG PO (08:38)
[2025-05-07] MEDS: FEOSOL 325 MG PO (08:38)
--- NOTE | 2025-05-07 09:23 | PTCARENOTE ---
Patient received from shift mgr RN; AAOx3, responds spontaneously to RN and follows commands; [place]; Flat, forgetful; VSS; SR with PVC's on monitor; Epicardial V-wires present - one insulated to chest and other connected to temporary pacemaker with
settings 80/0.1/0.8; Friction rub present; Trace generalized anasarca and +1 B/L LE edema; +1 DP and +2 radial pulses; Shallow respirations; Lungs diminished at bases; SpO2 92-97% on 6L NC; IS 1000 ml; Occasional weak, non-productive cough; CTx2
connected to -20 cm wall suction draining serosanguineous drainage - no air leak, tidaling, or crepitus noted; Appetite improving; Patient urinating clear, yellow urine; Unsteady gait in room; Surgical sites intact; RIJ Cordis with KVO infusing;
PIVx1 - #18 left hand; See nursing documentation for further information
--- NOTE | 2025-05-07 12:15 | W.PN.CARDCBS ---
Addendum entered and electronically signed by Joss Ford MD 05/07/25 13:34:
agree with PAIGE Curtis note and assessment
agree with PAIGE Curtis plan
patient seen and examined
reviewed telemetry, reviewed morning ECG, and discussed with CT surgery team this am.
exam:
sternum cdi
cor regular no m
lungs diminished
aao x 3
non focal neurologically
remainder per CT surgery
Impression:
MV CAD s/p CABG x3 CANTU to LAD, saphenous vein graft to diagonal, saphenous vein graft 05/04/25
Transient post op RBBB and LBBB
Hypertension
Paroxysmal atrial fibrillation
type 2 diabetes
GERD
rheumatoid arthritis
Sleep apnea
Depression
Atheroma of the aortic arch
Plan:
-s/p CABG x3 CANTU to LAD, saphenous vein graft to diagonal, saphenous vein graft 05/04/25
-noted to have both transient RBBB and LBBB post surgically. both presently resolved. The bundle branch issues likely reflect transient ischemia from pump run/anesthesia and should recover. follow rhythm closely. appreciate EP input. may require
monitoring upon DC. continue to hold BB and amio for now. if we see rapid AF could consider low dose BB
-follow up echo 05/07 pending
-remaining CTs removed 05/07
-BPs remain marginal at times, requiring midodrine. wean as able.
-continue asa, plavix for now. was on eliquis prior to admission. hgb 8.6
-continue diurese as able
-continue post op care
-was on coreg and norvasc pre op
-d/w CT surgery, nursing
Original Note:
Today's Communication / Plan
-
follow rhythm
holding amio/BB
echo today
post op care
Impression / Plan
-
Impression:
MV CAD s/p CABG x3 CANTU to LAD, saphenous vein graft to diagonal, saphenous vein graft 05/04/25
Transient post op RBBB and LBBB
Hypertension
Paroxysmal atrial fibrillation
type 2 diabetes
GERD
rheumatoid arthritis
Sleep apnea
Depression
Atheroma of the aortic arch
Plan:
-s/p CABG x3 CANTU to LAD, saphenous vein graft to diagonal, saphenous vein graft 05/04/25
-noted to have both transient RBBB and LBBB post surgically. both presently resolved. The bundle branch issues likely reflect transient ischemia from pump run/anesthesia and should recover. follow rhythm closely. appreciate EP input. may require
monitoring upon DC. continue to hold BB and amio for now
-follow up echo 05/07 pending
-remaining CTs removed 05/07
-BPs remain marginal at times, requiring midodrine. wean as able.
-continue asa, plavix for now. was on eliquis prior to admission. hgb 8.6
-continue diurese as able
-continue post op care
-was on coreg and norvasc pre op
-d/w CT surgery, nursing
Progress Note - Electric Meter Repairer
Subjective
Date of Service: May 07, 2025
no complaints of dizziness/lightheadedness, palpitations, pain
Objective
Labs:
05/07/25 03:55
05/07/25 03:55
Labs
Hgb 8.6 g/dL (13.0-18.0) L 05/07/25 03:55
Hct 24.6 % (39.0-52.0) L 05/07/25 03:55
Plt Count 113 10^3/uL (130-400) L 05/07/25 03:55
PT 16.6 Sec (11.4-14.6) H 05/05/25 03:27
INR 1.33 05/05/25 03:27
APTT 31.6 Sec (23.4-35.0) 05/04/25 19:43
Sodium 132 mmol/L (135-145) L 05/07/25 03:55
Potassium 3.9 mmol/L (3.5-5.1) 05/07/25 03:55
BUN 26 mg/dl (9-20) H 05/07/25 03:55
Creatinine 1.0 mg/dL (0.7-1.3) 05/07/25 03:55
Glucose 155 mg/dl (70-99) H 05/07/25 03:55
Vital Signs and I&O:
Vital Signs
Temp Pulse Resp BP Pulse Ox
98.5 F 83 16 104/72 97
05/07/25 11:33 05/07/25 11:30 05/07/25 11:33 05/07/25 11:30 05/07/25 11:33
Vital Signs
Temp Pulse Resp BP Pulse Ox
98.5 F 83 16 104/72 97
05/07/25 11:33 05/07/25 11:30 05/07/25 11:33 05/07/25 11:30 05/07/25 11:33
Intake & Output
05/05/25 05/06/25 05/07/25 05/08/25
07:59 07:59 07:59 07:59
Intake Total 2895.0 / 2943.7 874.0 / 886.3 689.3 / 689.3 600 / 600
Output Total 1959 1295 / 1335 2205 / 2205 1575 / 1575
Balance 935.0 / 888.7 -421.0 / -448.7 -1515.7 / -1515.7 -975 / -975
Physical Exam
Physical Exam
GEN: No distress, awake, alert, oriented x3. Sitting in chair
HEENT: supple, anicteric, mmm, EOMI
LUNGS: Few crackles bilateral bases, no wheezes
CV: Reg, S1/S2, no murmur
ABD: soft, BS+, NT/ND
EXT: No cyanosis, clubbing. trace of bilateral lower extremity
NEURO: Gross non-focal
SKIN: Warm, pink, dry. No rash. Sternotomy dressing c/d/i
[2025-05-07 12:40] LABS: Glucose - Point of Care 207 mg/dl (70-99)
[2025-05-07] MEDS: NOVOLOG FLEXPEN-MODERATE RESISTANCE 3 UNITS SC ×2 (12:40→18:10)
--- NOTE | 2025-05-07 13:31 | PTCARENOTE ---
Patient ambulating in hallways with RN and PT; Mediastinal chest tubes removed by RN at bedside - no complications noted and VSS; IV Lasix 40 mg ordered and given; Patient resting comfortably in chair at this time
[2025-05-07] MEDS: LIPITOR 80 MG PO (16:01)
[2025-05-07] MEDS: MILK OF MAGNESIA 30 ML PO (16:01)
--- NOTE | 2025-05-07 16:24 | PTCARENOTE ---
Oxygen weaned to room air; Patient ambulating in hallways with RN; Patient resting comfortably in chair at this time
[2025-05-07 18:08] LABS: Glucose - Point of Care 203 mg/dl (70-99)
[2025-05-07] MEDS: REMOVE LIDOCAINE PATCH REMOVE (19:35)
--- NOTE | 2025-05-07 20:15 | PTCARENOTE ---
Patient received from RN @ 1900. Patient lying in bed w/ call pastor in reach. AOx3. Assist x1 w/ walker. Occasional brain fog and hard of hearing. SR on monitor. BP 111/73 HR 93. 2x V-wires. set to VVI 80/0.1/0.8. Heart sounds audible.
Radial and pedal pulses present. Trace generalized edema noted. +1 lower leg edema noted bilaterally. Lungs diminished in bases bilaterally. IS 1500. POX 93% RA. Weak non productive cough noted. Bowel sounds hypoactive but flatulence noted.
Voiding clear yellow urine in urinal. Sternal incision dressing dry and intact w/ scant old drainage. Right groin w/ stopper C/D/I [employer]. Right knee incision well approximated [employer] B[employer]. RIJ cordis and left PIV patent and intact. Labs drawn to check
electrolytes. Patient denies any pain. See worklist for more details.
[2025-05-07 20:28] LABS: Blood Urea Nitrogen 27 mg/dl (9-20); Calcium 8.0 mg/dl (8.4-10.2); Carbon Dioxide 29 mmol/L (22-30); Chloride 95 mmol/L (98-107); Estimated Creatinine Clearance 71 ml/min; Glucose 191 mg/dl (70-99); Magnesium 2.3 mg/dl (1.6-2.3); Potassium 3.7 mmol/L (3.5-5.1); Sodium 131 mmol/L (135-145); eGFR > 60.00
[2025-05-07] MEDS: CALCIUM GLUCONATE 100 IV (21:42)
[2025-05-07] MEDS: KCL 40 MEQ PO (21:42)
[2025-05-07 22:05] LABS: Glucose - Point of Care 228 mg/dl (70-99)
[2025-05-07] MEDS: MELATONIN 5 MG PO (23:04)
--- NOTE | 2025-05-07 23:43 | PTCARENOTE ---
Patient desat to 89%. Patient placed on CPAP w/ 2L. POX 92%.
[2025-05-08] VITALS (13 sets, daily range): BP systolic 93–123; BP diastolic 69–78; PULSE 84–86; O2SAT 90; BMI 26.7
--- NOTE | 2025-05-08 01:11 | PTCARENOTE ---
Patient reassessed. Patient resting comfortably. SR on monitor. VSS. POX 93% CPAP on 3L.
--- NOTE | 2025-05-08 03:04 | W.PN.CT ---
Today's Communication / Plan
-
-pod #4
-no issues overnight, walked
-no drips
-diuresed with Lasix on 05/07- UO 1100/3050 in 12/24 hrs
-repleted KCl and Calcium last night 05/07
-continue diuresis
-appreciate EP and Cardiology input regarding bundle branch blocks postop. Noted recommendation to hold BB and Amio and consider Rhythm star monitor outpatient. Monitor rhythm
-BB and Amio have been on hold postop also for low BP. Currently, on Midodrine 5 tid
-encouraged IS - pOx 93% RA
-maintain pw, Cordis
-continue PT/OT. Noted recommendation for acute rehab
-ambulate, encourage IS
-possible d/c soon
Assessment / Plan
-
Assessment:
-S/p Median sternotomy/CABG x 3 (SUSANNA to LAD, GSV to D1, GSV to distal RCA)/Endoscopic harvest/prep of RLE GSV/[facility] MAZE procedure/ELAA/Repair of minor epicardial adipose avulsion/Re-establishment of CPB w/ repair of (late) small arterial bleed
from prior epicardial adipose avulsion, by Dr. Dotson, 05/04/25, pod#4
-Severe Multivessel CAD
-[place]
-Hx CAD
-Hx NSTEMI (0.914) S/P LHC showed an occluded OM branch of LCx filling via left to left collaterals, 03/21/2018
-PAF (on Eliquis @ home)
-LVEF 60-65% per intraop ROSALES
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
-T2DM (A1C 8.6)
-HTN
-GERD
-Rheumatoid Arthritis
-KYLEE
-Depression
-S/P Colon resection, 2014
-S/P Inguinal hernia repair
-S/P Appendectomy
-S/P Vasectomy, 1982
-Acute postop blood loss/Anemia (transfused 1u PRBC)
-Acute postop coagulopathy (transfused 2u FFP's)
-Acute postop RBBB with LAFB seen postop on 05/04. Noted to have acute LBBB on 05/05
-Acute postop bradycardia 40's S/P dobutamine
-Acute postop atelectasis/ pulmonary insufficiency
-Acute postop hypovolemia with subsequent hypervolemia
Discussed patient care with: Nursing and Care Team
Subjective
Procedure
Median sternotomy/CABG x 3 (SUSANNA to LAD, GSV to D1, GSV to distal RCA)/Endoscopic harvest/prep of RLE GSV/Encompass MAZE procedure/ELAA/Repair of minor epicardial adipose avulsion/Re-establishment of CPB w/ repair of (late) small arterial bleed
from prior epicardial adipose avulsion, by Dr. Dotson, 05/04/25
-
Date of Service: May 08, 2025
Objective Data
-
PT 16.6 Sec (11.4-14.6) H 05/05/25 03:27
INR 1.33 05/05/25 03:27
APTT 31.6 Sec (23.4-35.0) 05/04/25 19:43
Vital Signs
Vital Signs
Temp Pulse Resp BP Pulse Ox
98.6 F 82 14 114/77 92
05/07/25 23:10 05/08/25 01:00 05/07/25 23:10 05/07/25 23:08 05/08/25 01:00
CT Intake/Output/Weight
05/07/25 05/07/25 05/08/25
06:59 18:59 06:59
Intake Total 110 / 699.9 1200 / 1210 10 / 1210
Output Total 780 / 2295 1975 / 2525 550 / 2525
Balance -670 / -1595.1 -775 / -1315 -540 / -1315
SaO2: 92
Physical Exam
-
General: Awake and AOx3
Cardiovascular: Regular rate & rhythm, No Murmurs and Rub, + JVD
Respiratory: Decreased Breath Sounds
Sternum: Stable
Incision: Clean, Dry and Intact
Extremities: trace Edema (2+ DPs b/l)
Data Reviewed
-
Lab Results: Results Reviewed
Medications: Active Meds Reviewed
Chest X-Ray: Report Reviewed and Image Reviewed
ECG: Report Reviewed and Image Reviewed
--- NOTE | 2025-05-08 03:13 | PTCARENOTE ---
Patient reassessed. Patient states he slept comfortably. SR on monitor. VSS. Labs drawn.
[2025-05-08 03:25] LABS: Hematocrit 24.8 % (39.0-52.0); Hemoglobin 8.6 g/dL (13.0-18.0); Mean Corp Hgb Conc. 34.7 g/dL (33.0-37.0); Mean Corpuscular Volume 89.2 fL (80.0-94.0); Platelet Count 142 10^3/uL (130-400); Red Cell Dist. Width 13.5 % (11.5-14.5)
[2025-05-08 03:44] LABS: Blood Urea Nitrogen 25 mg/dl (9-20); Calcium 8.3 mg/dl (8.4-10.2); Carbon Dioxide 30 mmol/L (22-30); Chloride 98 mmol/L (98-107); Estimated Creatinine Clearance 79 ml/min; Glucose 137 mg/dl (70-99); Magnesium 2.3 mg/dl (1.6-2.3); Potassium 4.0 mmol/L (3.5-5.1); Sodium 134 mmol/L (135-145); eGFR > 60.00
[2025-05-08] MEDS: TYLENOL 975 MG PO ×3 (05:56→21:59)
--- NOTE | 2025-05-08 07:50 | PN.DE.MGMTRT ---
Insulin Management
- -
05/08/2025: Diabetes Management Follow up
74 year old patient admitted for surgery, CABG x 3 05/04. PMH Diverticulitis, GERD, CAD, triple vessel disease, NSTEMI, RA, HTN, Sleep apnea, depression.
Patient states he has had diabetes 6 or 7 years, follows with primary doctor. Prior to admission was taking Januvia 100 mg daily, Jardiance 25 mg daily and metformin 1000 mg BID. A1C 8.6%, cr 1, eGFR > 60. States he has had diabetes 6 or 7 years,
follows with primary doctor.
Patient is awake alert and oriented able to discuss diabetes care, sitting up in chair, offers no complaints, able to discuss diabetes care plan.
POD # 4 Transitioned from Critical Care glycemic on 05/06 to Farxiga, metformin and Januvia with moderate corrective insulin.
05/08 Fasting glucose today 202. Glucose range yesterday 203 to 218 after insulin infusion was stopped.
Will start Lantus 12 units @ HS. Continue Farxiga 10 daily, Metformin 1000 mg BID, and Januvia 100mg daily with moderate corrective insulin.
He has a OneTouch Verio meter but never tests his glucose. Strips are not . Discussed at length importance of glucose control, he seems disinterested, states he isn't changing how he eats. He has attended outpatient diabetes classes twice.
Discussed the possibility of requiring insulin, again he seemed more receptive today and states he was expecting it.
Discussed with nurse. Will cont to follow.
Diabetes History
- -
Type of Diabetes: 2 requiring insulin
Pre-Admission Diabetes Regimen
05/07/25 05/08/25
20:03 03:05
Creatinine 1.0 0.9
Lab Results
Hemoglobin A1c 8.6 % (4.0-5.9) H 04/29/25 08:54
Insulin Pump Settings
IP Diabetes Regimen
05/07/25 05/07/25 05/07/25
08:20 12:38 18:07
Glucose
POC Glucose 218 H 207 H 203 H
05/07/25 05/07/25 05/08/25
20:03 22:03 03:05
Glucose 191 H 137 H
POC Glucose 228 H
Meal type: Lunch
Meal type: Breakfast
Amount consumed: 90%
Amount consumed: 90%
Patient Education
[2025-05-08] MEDS: LIDOCAINE 4% PATCH TOPICAL (07:51)
--- NOTE | 2025-05-08 08:00 | PTCARENOTE ---
pt received from previous RN, oriented, OOB in chair. SR on the monitor, HR 70-80s. V wires x2, insulated. SBP 100s. palpable pulses. +1 generalized edema. pt on RA, 98% POX. lungs diminished in bases. IS encouraged. pt abdomen s/n, denies n/v. +BS,
+BM yesterday. voids in urinal. sternal aquacel in place, old drainage. chest tube site dressing c/d/i. R groin stopper in place, YARY, ecchymotic, no s/s of hematoma. R knee incision YARY. RIJ cordis maintained. PIV. see worklist for VS, I&O, and
assessment.
[2025-05-08] MEDS: NEURONTIN 100 MG PO ×3 (08:22→21:59)
[2025-05-08] MEDS: LOW STRENGTH ASPIRIN 81 MG PO (08:22)
[2025-05-08] MEDS: VITAMIN C 500 MG PO (08:22)
[2025-05-08] MEDS: JANUVIA 100 MG PO (08:22)
[2025-05-08] MEDS: GLUCOPHAGE 1000 MG PO ×2 (08:22→16:14)
[2025-05-08] MEDS: KCL 40 MEQ PO ×2 (08:22→20:30)
[2025-05-08] MEDS: FARXIGA 10 MG PO (08:22)
[2025-05-08] MEDS: WELLBUTRIN XL (24 hour extended release) 150 MG PO (08:22)
[2025-05-08] MEDS: SENOKOT 8.6 MG PO (08:22)
[2025-05-08] MEDS: PLAVIX 75 MG PO (08:23)
[2025-05-08] MEDS: BACTROBAN 2% OINTMENT 1 APPLIC NASAL (08:23)
[2025-05-08] MEDS: PROTONIX 40 MG PO (08:23)
[2025-05-08] MEDS: FEOSOL 325 MG PO (08:23)
[2025-05-08] MEDS: LASIX 40 MG IV ×2 (08:23→16:13)
[2025-05-08] MEDS: NOVOLOG FLEXPEN-MODERATE RESISTANCE 3 UNITS SC (08:31)
[2025-05-08 08:32] LABS: Glucose - Point of Care 202 mg/dl (70-99)
[2025-05-08] MEDS: ZOFRAN 4 MG IV (10:01)
--- NOTE | 2025-05-08 12:30 | PTCARENOTE ---
pt VSS, OOB in chair. voids in urinal. pt ambulated in hallway w/ PT/OT, tolerated well. pt c/o nausea, given PRN Zofran. pt states 'thinks it was the food'. 2V CXR completed.
--- NOTE | 2025-05-08 12:48 | PTCARENOTE ---
05/08/2025 DIABETES EDUCATION CONSULT
Met with patient for insulin instruction, IP for CABG with A1c 8.7% . He attended diabetes education class in the past year. Reviewed Lantus storage and proper administration technique, instructed to inject at same time daily. 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 He was able to complete a successful repeat demonstration. Provided nurse with insulin pen needles that will be ordered
at discharge, she will assist patient with self administration at next dose. Provided written instructions on insulin instruction. He has office number if questions arise after discharge.
[2025-05-08] MEDS: NSS IV (12:50)
--- NOTE | 2025-05-08 13:16 | PTCARENOTE ---
pt placed back to bed, LOCO cardona dc'd as ordered, dressing c/d/i. chest tube dressing changed.
[2025-05-08] MEDS: NOVOLOG FLEXPEN-MODERATE RESISTANCE 1 UNITS SC (13:25)
[2025-05-08 13:26] LABS: Glucose - Point of Care 195 mg/dl (70-99)
--- NOTE | 2025-05-08 13:45 | PTCARENOTE ---
pt educated on proper technique for insulin administration, teach back method applied. educated pt and family that pt will be on Lantus at home. pt states he knows how to use his monitor at home. daughter and ex- requested to speak w/ Chika YAÑEZ
Kamla spoke w/ family.
--- NOTE | 2025-05-08 14:05 | PTCARENOTE ---
DIABETES EDUCATION CONSULT
Met with patient again at RN request, family concerned patient does not know how to use his glucometer and was asked to bring in supplies to ensure they are up to day. Family (daughter and spouse) not in the room; checked supplies and the test
strips are not (exp 05/20/2026) and lancets are not (05/20/2028). Placed test strip in glucometer, functions properly. Patient declined glucometer demonstration, states he will check once daily after discharge and report to PCP.
--- NOTE | 2025-05-08 15:18 | PTCARENOTE ---
resumed care of patient from prev RN. AAOx3. SR. 93% RA, IS 1500. lungs diminished but clear. +bs. Clear yellow urine into urinal. IV lasix given. Pulses palpable trace gen edema. PIV patent. guard assist. steady gait. VSS. will continue to monitor.
--- NOTE | 2025-05-08 15:33 | CM ---
dc plan remains home with family when medically stable. he is agreeable to a f/u visit form the ct transitional care nurse after dc.
--- NOTE | 2025-05-08 15:56 | W.PN.CARDCBS ---
Addendum entered and electronically signed by Camron Ibanez MD 05/08/25 17:22:
I saw and examined the patient.
The River Tester's note was reviewed and I agree with the note.
Comment:
GEN: No distress, awake, Ox3
HEENT: supple, anicteric, mmm
LUNGS: CTA, no wheezes/rales
CV: Reg, S1/S2, no gallop
ABD: soft, BS+, NT/ND
EXT: No edema
NEURO: Gross non-focal
SKIN: sternotomy
PLan:
Rhythm is much improved now in sinus rhythm with narrow QRS. Hopefully with decrease edema no further rhythm issues.
Continue to hold metoprolol and amiodarone.
Hemoglobin at 8.6. Continue to follow. Continue aspirin and Plavix
Eventually resume Eliquis.
Remains on midodrine for blood pressure support.
Original Note:
Today's Communication / Plan
-
Continue postop care
follow rhythm, improving
echo 05/07 ok
eliquis to resume upon DC
Impression / Plan
-
Impression:
MV CAD s/p CABG x3 CANTU to LAD, saphenous vein graft to diagonal, saphenous vein graft 05/04/25
Transient post op RBBB and LBBB
Hypertension
Paroxysmal atrial fibrillation
type 2 diabetes
GERD
rheumatoid arthritis
Sleep apnea
Depression
Atheroma of the aortic arch
ECHO 05/07/25: EF 60 to 65%, no significant changes compared to prior, trace AI
Plan:
-s/p CABG x3 CANTU to LAD, saphenous vein graft to diagonal, saphenous vein graft 05/04/25
-noted to have both transient RBBB and LBBB post surgically. both presently resolved. The bundle branch issues likely reflect transient ischemia from pump run/anesthesia. rhythm improving on review of tele. no pauses/bradycardia/bundle noted
overnight
-holding BB/amio. would consider for cardiac monitoring upon DC
-echo 05/07 with preserved EF, no significant changes compared to prior
-BPs remain marginal at times, requiring midodrine. wean as able.
-continue asa, plavix for now. was on eliquis prior to admission, d/w CT surgery, plan to resume on day of discharge. hgb 8.6
-continue diurese as able
-continue post op care, ambulating
-was on coreg and norvasc pre op
-planning for DC on Thursday 05/10
Progress Note - Maitre D
Subjective
Date of Service: May 08, 2025
Feeling well. Ambulating. Denies significant pain aside from occasional discomfort with deep breathing
Objective
Labs:
05/08/25 03:05
05/08/25 03:05
Labs
Hgb 8.6 g/dL (13.0-18.0) L 05/08/25 03:05
Hct 24.8 % (39.0-52.0) L 05/08/25 03:05
Plt Count 142 10^3/uL (130-400) D 05/08/25 03:05
PT 16.6 Sec (11.4-14.6) H 05/05/25 03:27
INR 1.33 05/05/25 03:27
APTT 31.6 Sec (23.4-35.0) 05/04/25 19:43
Sodium 134 mmol/L (135-145) L 05/08/25 03:05
Potassium 4.0 mmol/L (3.5-5.1) 05/08/25 03:05
BUN 25 mg/dl (9-20) H 05/08/25 03:05
Creatinine 0.9 mg/dL (0.7-1.3) 05/08/25 03:05
Glucose 137 mg/dl (70-99) H 05/08/25 03:05
Vital Signs and I&O:
Vital Signs
Temp Pulse Resp BP Pulse Ox
97.9 F 84 18 115/72 97
05/08/25 12:32 05/08/25 15:00 05/08/25 12:32 05/08/25 13:10 05/08/25 12:32
Vital Signs
Temp Pulse Resp BP Pulse Ox
97.9 F 84 18 115/72 97
05/08/25 12:32 05/08/25 15:00 05/08/25 12:32 05/08/25 13:10 05/08/25 12:32
Intake & Output
05/06/25 05/07/25 05/08/25 05/09/25
07:59 07:59 07:59 07:59
Intake Total 874.0 / 886.3 689.3 / 689.3 1230 / 1230 490 / 490
Output Total 1295 / 1335 2205 / 2205 3075 / 3075 1600 / 1600
Balance -421.0 / -448.7 -1515.7 / -1515.7 -1845 / -1845 -1110 / -1110
Physical Exam
Physical Exam
GEN: No distress, awake, alert, oriented x3. Sitting in chair
HEENT: supple, anicteric, mmm, EOMI
LUNGS: CTA bilaterally, no wheezes/rales
CV: Reg, S1/S2, no murmur
ABD: soft, BS+, NT/ND
EXT: No cyanosis, clubbing.1+ edema of bilateral lower extremity
NEURO: Gross non-focal
SKIN: Warm, pink, dry. No rash. Sternotomy dressing C/D/I. Right lower extremity incision C/D/I
[2025-05-08] MEDS: LIPITOR 80 MG PO (16:14)
[2025-05-08 18:23] LABS: Glucose - Point of Care 139 mg/dl (70-99)
[2025-05-08] MEDS: NOVOLOG FLEXPEN-MODERATE RESISTANCE SC (18:50)
[2025-05-08] MEDS: REMOVE LIDOCAINE PATCH REMOVE (20:29)
[2025-05-08] MEDS: SENOKOT PO (20:30)
[2025-05-08 21:57] LABS: Glucose - Point of Care 254 mg/dl (70-99)
[2025-05-08] MEDS: LANTUS 0.12 UNITS SC (22:00)
[2025-05-09] VITALS (7 sets, daily range): BP systolic 100–131; BP diastolic 65–91; PULSE 88; O2SAT 96; BMI 26.2
--- NOTE | 2025-05-09 00:55 | PTCARENOTE ---
received the patient at the change of shift from CV[facility]. AAOx3. denies any pain. SR on tele with PVCs noted- 80s-90s. bp stable. +1 pedal edema noted. trace generalized edema. patient states it has improved. + pulses. oob with a standby assist.
reinforced sternal precautions to patient. surgical incisions intact. v wires x2 insulated. reviewed plan of care with patient and verbalized understanding. IS encouraged. call pastor within reach. makes needs known.
[2025-05-09 04:14] LABS: Hematocrit 27.7 % (39.0-52.0); Hemoglobin 9.7 g/dL (13.0-18.0); Mean Corp Hgb Conc. 35.0 g/dL (33.0-37.0); Mean Corpuscular Volume 89.9 fL (80.0-94.0); Platelet Count 197 10^3/uL (130-400); Red Cell Dist. Width 13.5 % (11.5-14.5)
--- NOTE | 2025-05-09 04:31 | W.PN.CT ---
Today's Communication / Plan
-
Plan:
-No major issues overnight. Hemodynamically and neurologically intact
-Off all drips
-BP has been soft postop. On Midodrine. BB on hold
-Will replete ca++ to help augment BP
-Will replete K+ of 3.8
-Rhythm is stable, NSR @ 83 bpm this morning. Appreciate EP's input
-Resume Eliquis
-D/C temporary PW (cut)
-Diabetes education/management following, on and
-Encourage use of IS
-OOB into chair/Ambulate
-Likely home tomorrow
Assessment / Plan
-
Assessment:
-S/p Median sternotomy/CABG x 3 (SUSANNA to LAD, GSV to D1, GSV to distal RCA)/Endoscopic harvest/prep of RLE GSV/Encompass MAZE procedure/ELAA/Repair of minor epicardial adipose avulsion/Re-establishment of CPB w/ repair of (late) small arterial bleed
from prior epicardial adipose avulsion, by Dr. Dotson, 05/04/25, pod#5
-Severe Multivessel CAD
-[place]
-Hx CAD
-Hx NSTEMI (0.914) S/P LHC showed an occluded OM branch of LCx filling via left to left collaterals, 03/21/2018
-PAF (on Eliquis @ home)
-LVEF 60-65% per intraop ROSALES
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
-T2DM (A1C 8.6)
-HTN
-GERD
-Rheumatoid Arthritis
-KYLEE
-Depression
-S/P Colon resection, 2014
-S/P Inguinal hernia repair
-S/P Appendectomy
-S/P Vasectomy, 1982
-Acute postop blood loss/Anemia (transfused 1u PRBC)
-Acute postop coagulopathy (transfused 2u FFP's)
-Acute postop RBBB with LAFB seen postop on 05/04. Noted to have acute LBBB on 05/05
-Acute postop bradycardia 40's S/P dobutamine
-Acute postop atelectasis/ pulmonary insufficiency
-Acute postop hypovolemia with subsequent hypervolemia
Discussed patient care with: Cardiology, Nursing, Respiratory Therapy, Pharmacy and Care Team
Subjective
Procedure
Median sternotomy/CABG x 3 (SUSANNA to LAD, GSV to D1, GSV to distal RCA)/Endoscopic harvest/prep of RLE GSV/Encompass MAZE procedure/ELAA/Repair of minor epicardial adipose avulsion/Re-establishment of CPB w/ repair of (late) small arterial bleed
from prior epicardial adipose avulsion, by Dr. Dotson, 05/04/25
-
Date of Service: May 09, 2025
Pt c/o mild incisional pain, otherwise feels well
Objective Data
-
Lab Results
05/09/25 03:39
PT 16.6 Sec (11.4-14.6) H 05/05/25 03:27
INR 1.33 05/05/25 03:27
APTT 31.6 Sec (23.4-35.0) 05/04/25 19:43
Vital Signs
Vital Signs
Temp Pulse Resp BP Pulse Ox
98.4 F 87 16 131/87 94
05/09/25 03:58 05/09/25 03:36 05/09/25 03:58 05/09/25 03:36 05/09/25 03:58
CT Intake/Output/Weight
05/08/25 05/08/25 05/09/25
06:59 18:59 06:59
Intake Total 20 / 1220 500 / 750 250 / 750
Output Total 1100 / 3075 2850 / 3075 225 / 3075
Balance -1080 / -1855 -2350 / -2325 25 / -2325
SaO2: 94 (RA)
Physical Exam
-
General: Awake, Oriented and AOx3
Cardiovascular: Regular rate & rhythm, No Murmurs, No Rub and No Gallop
Respiratory: Decreased Breath Sounds (at bases, otherwise clear)
Sternum: Stable
Incision: Clean, Dry, Intact and Dressing Intact
Extremities: Other (+trace edema)
Data Reviewed
-
Lab Results: Results Reviewed
Medications: Active Meds Reviewed
Chest X-Ray: Report Reviewed and Image Reviewed
ECG: Report Reviewed and Image Reviewed
[2025-05-09 04:34] LABS: Blood Urea Nitrogen 23 mg/dl (9-20); Calcium 8.6 mg/dl (8.4-10.2); Carbon Dioxide 33 mmol/L (22-30); Chloride 97 mmol/L (98-107); Estimated Creatinine Clearance 71 ml/min; Glucose 152 mg/dl (70-99); Magnesium 2.2 mg/dl (1.6-2.3); Potassium 3.8 mmol/L (3.5-5.1); Sodium 136 mmol/L (135-145); eGFR > 60.00
[2025-05-09] MEDS: KCL 40 MEQ PO ×3 (05:05→20:33)
[2025-05-09] MEDS: TYLENOL 975 MG PO ×3 (05:05→22:25)
[2025-05-09] MEDS: CALCIUM GLUCONATE 130 MG IV ×2 (05:06→20:47)
--- NOTE | 2025-05-09 07:23 | W.PN.CARDCBS ---
Today's Communication / Plan
-
Has diuresed well. Would stop IV Lasix and transition to oral Lasix at 40 mg daily, will need basic metabolic profile and magnesium checked next week.
Rhythm has remained stable without further evidence of bundle branch block or any higher degrees of block. Recommend outpatient cardiac rhythm monitoring at discharge
Resume Eliquis at discharge
Impression / Plan
-
Impression:
MV CAD s/p CABG x3 CANTU to LAD, saphenous vein graft to diagonal, saphenous vein graft 05/04/25
Transient post op RBBB and LBBB
Hypertension
Paroxysmal atrial fibrillation
type 2 diabetes
GERD
rheumatoid arthritis
Sleep apnea
Depression
Atheroma of the aortic arch
ECHO 05/07/25: EF 60 to 65%, no significant changes compared to prior, trace AI
Plan:
Multivessel coronary artery disease:
-s/p CABG x3 CANTU to LAD, saphenous vein graft to diagonal, saphenous vein graft 05/04/25
-noted to have both transient RBBB and LBBB post surgically.
Bundle branch block likely related to transient ischemia/edema
No further bundle branch block morphology, QRS complexes have been narrow. There has been no significant bradycardia, pauses or heart block.
He has been maintaining sinus rhythm. Continue holding BB/amio with no plan to initiate beta-arvin or amiodarone at this point
Recommend cardiac monitoring upon DC
-echo 05/07 with preserved EF, no significant changes compared to prior
-BPs remain marginal at times but overall improving
requiring midodrine. wean as able.
-continue asa, plavix for now. was on eliquis prior to admission for atrial fibrillation related thromboembolic risk reduction
we have d/w CT surgery, plan to resume apixaban on day of discharge. hgb up to 9.7
-diuresis, currently on Lasix 40 mg IV twice daily
Weight is down 10 pounds since May 06, down 3 pounds in the past 24 hours and renal function stable with BUN and creatinine of 23 and 1
Looks like his preop weight was 190 pounds. Today's weight is 193 pounds
Would change to PO Lasix 40 mg daily (was not on diuretic as an outpatient) when okay with CT surgery and will need a basic metabolic profile and magnesium next week
-continue post op care, ambulating
-was on coreg and norvasc pre op currently on hold due to borderline blood pressures
-planning for DC on Thursday 05/10
Progress Note - Backside Grinder
Subjective
Date of Service: May 09, 2025
No chest pain shortness of breath palpitations or dizziness
Objective
Labs:
05/09/25 03:39
05/09/25 03:39
Labs
Hgb 9.7 g/dL (13.0-18.0) L 05/09/25 03:39
Hct 27.7 % (39.0-52.0) L 05/09/25 03:39
Plt Count 197 10^3/uL (130-400) D 05/09/25 03:39
PT 16.6 Sec (11.4-14.6) H 05/05/25 03:27
INR 1.33 05/05/25 03:27
APTT 31.6 Sec (23.4-35.0) 05/04/25 19:43
Sodium 136 mmol/L (135-145) 05/09/25 03:39
Potassium 3.8 mmol/L (3.5-5.1) 05/09/25 03:39
BUN 23 mg/dl (9-20) H 05/09/25 03:39
Creatinine 1.0 mg/dL (0.7-1.3) 05/09/25 03:39
Glucose 152 mg/dl (70-99) H 05/09/25 03:39
Vital Signs and I&O:
Vital Signs
Temp Pulse Resp BP Pulse Ox
98.4 F 87 16 131/87 94
12/20/25 03:58 05/09/25 03:36 05/09/25 03:58 05/09/25 03:36 05/09/25 04:32
Vital Signs
Temp Pulse Resp BP Pulse Ox
98.4 F 87 16 131/87 94
05/09/25 03:58 05/09/25 03:36 05/09/25 03:58 05/09/25 03:36 05/09/25 04:32
Intake & Output
05/07/25 05/08/25 05/09/25 05/10/25
06:59 06:59 06:59 06:59
Intake Total 699.9 / 699.9 1220 / 1220 750 / 750
Output Total 2295 / 2295 3075 / 3075 3075 / 3075
Balance -1595.1 / -1595.1 -1855 / -1855 -2325 / -2325
Physical Exam
Physical Exam
GEN: No distress, awake, alert, oriented x3. Sitting in chair
HEENT: supple, anicteric, mmm, EOMI
LUNGS: CTA bilaterally, no wheezes/rales
CV: Reg, S1/S2, normal S1 and S2, no S3 no S4 3 1/6 apical holosystolic murmur no rubs
ABD: soft, BS+, NT/ND
EXT: No cyanosis, clubbing.1+ edema of bilateral lower extremity
NEURO: Gross non-focal
SKIN: Warm, pink, dry. No rash. Right lower extremity incision C/D/I
[2025-05-09] MEDS: VITAMIN C 500 MG PO (08:28)
[2025-05-09] MEDS: FARXIGA 10 MG PO (08:28)
[2025-05-09] MEDS: PROTONIX 40 MG PO (08:28)
[2025-05-09] MEDS: NEURONTIN 100 MG PO ×3 (08:28→22:26)
[2025-05-09] MEDS: NOVOLOG FLEXPEN-MODERATE RESISTANCE 1 UNITS SC ×2 (08:30→12:29)
[2025-05-09] MEDS: LOW STRENGTH ASPIRIN 81 MG PO (08:34)
[2025-05-09] MEDS: WELLBUTRIN XL (24 hour extended release) 150 MG PO (08:34)
[2025-05-09] MEDS: SENOKOT 8.6 MG PO ×2 (08:34→20:32)
[2025-05-09] MEDS: GLUCOPHAGE 1000 MG PO ×2 (08:35→17:28)
[2025-05-09] MEDS: JANUVIA 100 MG PO (08:36)
[2025-05-09] MEDS: LASIX 40 MG IV ×2 (08:36→16:20)
[2025-05-09] MEDS: FEOSOL 325 MG PO (08:37)
[2025-05-09] MEDS: ELIQUIS 5 MG PO ×2 (08:38→20:33)
[2025-05-09] MEDS: LIDOCAINE 4% PATCH TOPICAL (08:44)
[2025-05-09 08:56] LABS: Glucose - Point of Care 172 mg/dl (70-99)
[2025-05-09] MEDS: NSS IV (12:31)
[2025-05-09 13:09] LABS: Glucose - Point of Care 190 mg/dl (70-99)
--- NOTE | 2025-05-09 17:08 | PTCARENOTE ---
Pt received this am with no c/o of any pain or sob. OOB ad lisa, gait steady. SR, rate in the 70's to 90's.
[2025-05-09] MEDS: LIPITOR 80 MG PO (17:27)
[2025-05-09] MEDS: NOVOLOG FLEXPEN-MODERATE RESISTANCE 300 UNITS SC (17:39)
[2025-05-09 17:45] LABS: Glucose - Point of Care 196 mg/dl (70-99)
[2025-05-09] MEDS: REMOVE LIDOCAINE PATCH REMOVE (20:34)
[2025-05-09] MEDS: LANTUS 0.12 UNITS SC (22:28)
[2025-05-09 22:48] LABS: Glucose - Point of Care 149 mg/dl (70-99)
[2025-05-10 04:13] VITALS: BP 121/82
--- NOTE | 2025-05-10 04:22 | PTCARENOTE ---
patient states sleeping well overnight. denies any pain. ambulating in the halls this morning- no issues. SR on tele [id number]. bp stable. surgical incisions intact. x2 V wires insulated. patient is eager to go home. sternal precautions
reinforced. IS encouraged.
[2025-05-10 05:19] LABS: Blood Urea Nitrogen 20 mg/dl (9-20); Calcium 9.2 mg/dl (8.4-10.2); Carbon Dioxide 31 mmol/L (22-30); Chloride 94 mmol/L (98-107); Estimated Creatinine Clearance 71 ml/min; Glucose 143 mg/dl (70-99); Magnesium 2.0 mg/dl (1.6-2.3); Potassium 4.2 mmol/L (3.5-5.1); Sodium 133 mmol/L (135-145); eGFR > 60.00
[2025-05-10 06:00] VITALS: BMI 26.0
[2025-05-10] MEDS: TYLENOL 975 MG PO (07:03)
--- NOTE | 2025-05-10 07:27 | W.PN.CT ---
Today's Communication / Plan
-
Plan:
-No major issues overnight. Hemodynamically and neurologically intact
-Off all drips
-BP has been soft postop. On Midodrine. BB on hold
-Will replete ca++ to help augment BP
-Rhythm is stable, NSR @ 83 bpm this morning. Appreciate EP's input
-Resumed Eliquis
-D/C temporary PW (cut)
-Diabetes education/management following, on and
-Encourage use of IS
-OOB into chair/Ambulate
-Home today
Assessment / Plan
-
Assessment:
-S/p Median sternotomy/CABG x 3 (SUSANNA to LAD, GSV to D1, GSV to distal RCA)/Endoscopic harvest/prep of RLE GSV/Encompass MAZE procedure/ELAA/Repair of minor epicardial adipose avulsion/Re-establishment of CPB w/ repair of (late) small arterial bleed
from prior epicardial adipose avulsion, by Dr. Dotson, 05/04/25, pod#6
-Severe Multivessel CAD
-[place]
-Hx CAD
-Hx NSTEMI (0.914) S/P LHC showed an occluded OM branch of LCx filling via left to left collaterals, 03/21/2018
-PAF (on Eliquis @ home)
-LVEF 60-65% per intraop ROSALES
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
-T2DM (A1C 8.6)
-HTN
-GERD
-Rheumatoid Arthritis
-KYLEE
-Depression
-S/P Colon resection, 2014
-S/P Inguinal hernia repair
-S/P Appendectomy
-S/P Vasectomy, 1982
-Acute postop blood loss/Anemia (transfused 1u PRBC)
-Acute postop coagulopathy (transfused 2u FFP's)
-Acute postop RBBB with LAFB seen postop on 05/04. Noted to have acute LBBB on 05/05
-Acute postop bradycardia 40's S/P dobutamine
-Acute postop atelectasis/ pulmonary insufficiency
-Acute postop hypovolemia with subsequent hypervolemia
Discussed patient care with: Cardiology, Nursing, Respiratory Therapy, Pharmacy and Care Team
Subjective
Procedure
Median sternotomy/CABG x 3 (SUSANNA to LAD, GSV to D1, GSV to distal RCA)/Endoscopic harvest/prep of RLE GSV/Encompass MAZE procedure/ELAA/Repair of minor epicardial adipose avulsion/Re-establishment of CPB w/ repair of (late) small arterial bleed
from prior epicardial adipose avulsion, by Dr. Dotson, 05/04/25
-
Date of Service: May 10, 2025
Pt c/o mild incisional pain, otherwise feels well. Ambulating halls without difficulty
Objective Data
-
Lab Results
05/10/25 05:45
05/10/25 05:45
PT 16.6 Sec (11.4-14.6) H 05/05/25 03:27
INR 1.33 05/05/25 03:27
APTT 31.6 Sec (23.4-35.0) 05/04/25 19:43
Vital Signs
Vital Signs
Temp Pulse Resp BP Pulse Ox
98.4 F 88 18 121/82 96
05/10/25 04:21 05/10/25 04:13 05/10/25 04:21 05/10/25 04:13 05/10/25 04:21
CT Intake/Output/Weight
05/09/25 05/10/25 05/10/25
18:59 06:59 18:59
Intake Total 650 / 650
Output Total 1650 / 2450 800 / 2450 500 / 500
Balance -1650 / -1800 -150 / -1800 -500 / -500
SaO2: 96 (RA)
Physical Exam
-
General: Awake, Oriented and AOx3
Cardiovascular: Regular rate & rhythm and No Murmurs
Respiratory: Decreased Breath Sounds (at bases, otherwise clear)
Sternum: Stable
Incision: Clean, Dry, Intact and Dressing Intact
Extremities: Other (+trace edema)
Data Reviewed
-
Lab Results: Results Reviewed
Medications: Active Meds Reviewed
Chest X-Ray: Report Reviewed and Image Reviewed
ECG: Report Reviewed and Image Reviewed
[2025-05-10] MEDS: JANUVIA 100 MG PO (07:32)
[2025-05-10] MEDS: LOW STRENGTH ASPIRIN 81 MG PO (07:32)
[2025-05-10] MEDS: FARXIGA 10 MG PO (07:32)
[2025-05-10] MEDS: PROTONIX 40 MG PO (07:32)
[2025-05-10] MEDS: VITAMIN C 500 MG PO (07:32)
[2025-05-10] MEDS: FEOSOL 325 MG PO (07:32)
[2025-05-10] MEDS: GLUCOPHAGE 1000 MG PO (07:32)
[2025-05-10] MEDS: WELLBUTRIN XL (24 hour extended release) 150 MG PO (07:32)
[2025-05-10] MEDS: SENOKOT 8.6 MG PO (07:32)
[2025-05-10] MEDS: ELIQUIS 5 MG PO (07:33)
[2025-05-10] MEDS: NEURONTIN 100 MG PO (07:34)
[2025-05-10] MEDS: LASIX 40 MG IV (07:34)
[2025-05-10 07:35] VITALS: BP 116/71
[2025-05-10] MEDS: KCL 40 MEQ PO (07:38)
[2025-05-10] MEDS: LIDOCAINE 4% PATCH TOPICAL (07:38)
[2025-05-10] MEDS: NOVOLOG FLEXPEN-MODERATE RESISTANCE SC (07:47)
[2025-05-10 07:52] VITALS: BP 113/82
[2025-05-10 08:51] LABS: Glucose - Point of Care 140 mg/dl (70-99)
[2025-05-10] MEDS: IMODIUM 2 MG PO (10:32)
[2025-05-10] MEDS: NSS IV (10:33)
[2025-05-10 11:15] VITALS: BP 116/71
--- NOTE | 2025-05-10 11:36 | W.DCSUMMARY ---
Discharge Summary
Discharge Data
Date of Admission: 05/04/25
Date of Discharge: 05/10/25
Total time spent discharging patient (in min): 55
-
Pending Results: No
Hospital Course
Primary care physician:
Dr. St
Outpatient pipe fittings molder:
Dr. Ibanez
Inpatient consultants:
DCA, rice farmworker, DM management oxygen tank filler
Procedures:
1. Median sternotomy/CABG x 3 (SUSANNA to LAD, GSV to D1, GSV to distal RCA)/Endoscopic harvest/prep of RLE GSV/Encompass MAZE procedure/ELAA/Repair of minor epicardial adipose avulsion/Re-establishment of CPB w/ repair of (late) small arterial bleed
from prior epicardial adipose avulsion, by Dr. Dotson, 05/04/25
Primary Diagnosis:
1. Severe Multivessel CAD
Secondary Diagnoses:
-[place]
-Hx CAD
-Hx NSTEMI (0.914) S/P LHC showed an occluded OM branch of LCx filling via left to left collaterals, 03/21/2018
-PAF (on Eliquis @ home)
-LVEF 60-65% per intraop ROSALES
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
-T2DM (A1C 8.6)
-HTN
-GERD
-Rheumatoid Arthritis
-KYLEE
-Depression
-Acute postop blood loss/Anemia (transfused 1u PRBC)
-Acute postop coagulopathy (transfused 2u FFP's)
-Acute postop RBBB with LAFB seen postop on 05/04. Noted to have acute LBBB on 05/05
-Acute postop bradycardia 40's S/P dobutamine
-Acute postop atelectasis/ pulmonary insufficiency
-Acute postop hypovolemia with subsequent hypervolemia
HPI: 74 y/o male with severe MVD presents electively on 05/[address] Dotson.
Hospital course: Patient was electively admitted on 05/[address] Dotson. Postoperatively he returned to the CVICU on Levophed, Precedex, insulin, dobutamine. Patient was in complete heart block and was 100% V-paced. Initially INR was
noted to be 1.7 and 1 FFP was given. Patient was also given a total of 1.25 L of lactated Ringer's. New right bundle branch block was also noted. On 05/05 postoperative day 1, dobutamine was weaned off patient returned to his [place] rhythm
however a left bundle branch block was present. Standard postop beta-blockers and amiodarone were held. Patient remained on a Levophed infusion so midodrine was added for blood pressure support. On 05/06 postoperative day 2 Levophed was weaned
off. He was diuresed with 40 mg of IV Lasix. He was transitioned off his insulin infusion and was started on a oral regimen. Per Dr. Ford, electrophysiology, said doubt full that the patient would need a pacemaker but okay to resume Lopressor
if needed. However due to the ongoing need for midodrine beta-blockers were not started. Amin catheter removed. On 05/07 postoperative day 3 mediastinal chest tubes were removed and patient was again diuresed. On 05/08 postoperative day 4 Lasix
was increased to twice daily. Patient's mobility was improving after working with physical therapy. On 05/09 postoperative day 5, Lasix was continued femoral stitch was removed and he was resumed on his home Eliquis. On 05/10 postoperative day 6,
patient's epicardial wires were cut at the skin. Patient also complained of some diarrhea and was started on Imodium. Patient was deemed stable for discharge home. A heart monitor was discussed with the patient and he was informed that the
cardiology office will call him to get everything set up. He expressed his understanding at that time. He will be discharged with a 1 week course of oral diuretics. For his diabetes he was sent home with Lantus 12 units nightly. which he states
that he is familiar with, along with his other diabetic regimen.
Home medication changes:
See below
Discharge Plan
-
Patient Disposition: Home (Routine Discharge)
Discharge Diagnosis/Procedures: CABG x 3, left atrial appendage clip (05/04/25)
Condition: Fair
Diet: Low Cholesterol, Low Sodium, Diabetic, Carb Controlled and Restrict fluids to 64 oz
Activity: No strenuous activity
Driving Restrictions: Not until seen by your Dr
Bathing Restrictions: OK to Shower
Blood Work: BMP and magnesium in one week
Other Services: Cardiac Rehab
Specialty Instructions: Weigh Daily- Call MD for wt gain/loss 3 lbs overnight/5 lbs in 1 week
Activity Restrictions/Additional Instructions:
ACTIVITY:
-No strenuous activity: no heavy lifting, pushing, pulling anything over 15 pounds for one month
-continue to use stairs as tolerated
DRIVING RESTRICTIONS:
-No driving for one month or until approved by your surgeon
WOUND CARE:
-Shower daily. Use soap & water.
-No lotions, creams or powders on incision area.
DIET:
-continue a low fat/low cholesterol diet.
-IF you are diabetic, continue carb controlled diet.
CARDIAC REHAB:
-Please make appointment to start in 5-6 weeks with your local hospital program. (See Cardiac Rehabilitation Discharge Booklet).
SPECIALTY INSTRUCTIONS:
-Weigh yourself daily. Call your physician for any weight gain/loss of 3 lbs overnight or 5 lbs in one week.
-REPORT any clicking noise or uneven appearance of your sternum to your surgeon immediately.
-If you smoke, you are instructed to quit. The [place] smoking hotline phone number is [phone]
Referrals:
CT Transitional Care Nurse [Outside]
Referral Note:
The Cardiothoracic Transitional Care Nurse will call you to set up a visit in 1-2 days.
[facility] [Outside] - 06/10/25 9:30 am
Referral Note: Cardiac Rehab Orientation appointment is on 06/10/24 at 9:30 AM
The Cardiac Rehab gym is located on the first floor of the [facility].
Selena Denny PA-C [Specified Professional Personl, Cardiology] - 06/09/25 1:40 pm
Dwaine Dotson MD [Active, Cardiac Surgery] - 06/02/25 1:[address] DO [Family Provider, Internal Medicine]
Additional Discharge Medication Instructions: You will get a call from Tarah at Dr. Ibanez's office 05/11/2025 to arrange an outpatient personnel monitor.
Prescriptions:
New
acetaminophen 325 mg Tablet
650 mg PO Q4HPRN PRN (Reason: mild pain,headache,temp >101F ) Qty: 0 0RF
potassium chloride [Klor-Con M20] 20 mEq Tablet,Er Particles/Crystals
40 meq PO DAILY Qty: 7 0RF
oxycodone 5 mg Tablet
2.5 mg PO Q4HPRN PRN (Reason: severe pain) Qty: 7 0RF
insulin glargine [Basaglar KwikPen U-100 Insulin] 100 unit/mL (3 mL) insulin pen
12 unit SC QPM Qty: 15 0RF
(DME) pen needle, diabetic [Arianna Pen Needle] 32 gauge x 5/32' needle
See Rx Instructions .Route Qty: 1200 0RF
Rx Instructions:
As directed
furosemide [Lasix] 40 mg tablet
40 mg PO DAILY Qty: 7 0RF
Continued
omeprazole 40 mg Capsule,Delayed Release(Dr/Ec)
40 mg PO DAILY
Eliquis 5 mg Tablet
5 mg PO BID
Jardiance 25 mg Tablet
25 mg PO DAILY
amlodipine 2.5 mg Tablet
2.5 mg PO QPM
multivitamin Tablet
1 tab PO DAILY
atorvastatin 80 mg Tablet
80 mg PO QPM
aspirin 81 mg Tablet
81 mg PO DAILY
bupropion HCl 150 mg Tablet Extended Release 24 Hr
150 mg PO DAILY
Januvia 100 MG tablet
100 mg PO QPM
metformin 1,000 MG tablet
1,000 mg PO BID@0800,1700
Discontinued
nitroglycerin 0.4 mg Tablet, Sublingual
0.4 mg sublingual Q15M PRN (Reason: chest pain)
naproxen sodium [Aleve] 220 mg Capsule
440 mg PO BID PRN (Reason: pain)
carvedilol 6.25 mg tablet
6.25 mg PO BID
Discharge Orders:
Discharge Patient (As Directed); Ordered 05/10/25
Ordered By: Daniela Hopper
Care Plan Goals
Care Plan Goals:
Problem: Readiness for enhanced knowledge related to diagnosis and treatment plan
Goal: Understand your diagnosis and treatment plan needs, including medications if applicable.
Instructions: Know your diagnosis, underlying causes and treatment plan options, including medications if applicable. Consult with your health care team to learn about your diagnosis and treatment plan, including medications if applicable.
Discharge Date and Time
Print Language: NORTHERN IRISH
[2025-05-10] MEDS: NOVOLOG FLEXPEN-MODERATE RESISTANCE 1 UNITS SC (12:14)
[2025-05-10 12:20] LABS: Glucose - Point of Care 174 mg/dl (70-99)
--- NOTE | 2025-05-10 14:50 | PTCARENOTE ---
Pt received this am oob ad lisa, gaits steady. Denies any pain or discomfort. Room air sat 97%. SR, rate in the 70's to 80's. C/o several episodes of diarrhea. Medicated with Immodium as ordered with relief. Pt discharged to home with his and
daughter. Discharge instructions given and reviewed with pt and family with good understanding and all questions answered.
[2025-05-10] MEDS: TYLENOL PO (15:28)
== END 2025-05-10 14:50 | disposition home or self-care (01) | DRG 317 ==
LOC: IVU 05:05
PROVIDERS: Anesthesiology; Nurse Practitioner; Physician Assistant Medical; ADMITTING PHYSICIAN Thoracic Surgery (Cardiothoracic Vascular Surgery); CONSULT PHYSICIAN Internal Medicine; CONSULT PHYSICIAN Internal Medicine Cardiovascular Disease; FAMILY PHYSICIAN Internal Medicine
PROC: B24BZZ4 Ultrasonography of Heart with Aorta, Transesophageal (ICD-10-PCS; 2025-05-04)
PROC: 02U Heart and Great Vessels, Supplement (ICD-10-PCS; 2025-05-04)
PROC: 02580ZZ Destruction of Conduction Mechanism, Open Approach (ICD-10-PCS; 2025-05-04)
PROC: 02L70CK Occlusion of Left Atrial Appendage with Extraluminal Device, Open Approach (ICD-10-PCS; 2025-05-04)
PROC: 30233K1 Transfusion of Nonautologous Frozen Plasma into Peripheral Vein, Percutaneous Approach (ICD-10-PCS; 2025-05-04)
PROC: 30233N1 Transfusion of Nonautologous Red Blood Cells into Peripheral Vein, Percutaneous Approach (ICD-10-PCS; 2025-05-04)
PROC: 02100ZC Bypass Coronary Artery, One Artery from Thoracic Artery, Open Approach (ICD-10-PCS; 2025-05-04)
PROC: 06BP4ZZ Excision of Right Saphenous Vein, Percutaneous Endoscopic Approach (ICD-10-PCS; 2025-05-04)
PROC: 5A1221Z Performance of Cardiac Output, Continuous (ICD-10-PCS; 2025-05-04)
PROC: 021109W Bypass Coronary Artery, Two Arteries from Aorta with Autologous Venous Tissue, Open Approach (ICD-10-PCS; 2025-05-04)
DX: I25.110 Atherosclerotic heart disease of native coronary artery with unstable angina pectoris (principal); J95.1 Acute pulmonary insufficiency following thoracic surgery; I44.2 Atrioventricular block, complete; D62 Acute posthemorrhagic anemia; I97.411 Intraoperative hemorrhage and hematoma of a circulatory system organ or structure complicating a cardiac bypass; I45.2 Bifascicular block; D68.8 Other specified coagulation defects; J98.11 Atelectasis; R00.1 Bradycardia, unspecified; I44.1 Atrioventricular block, second degree; I45.5 Other specified heart block; R19.7 Diarrhea, unspecified; E86.1 Hypovolemia; E87.70 Fluid overload, unspecified; E11.65 Type 2 diabetes mellitus with hyperglycemia; I10 Essential (primary) hypertension; F32.A Depression, unspecified; F41.9 Anxiety disorder, unspecified; K21.9 Gastro-esophageal reflux disease without esophagitis; Y83.2 Surgical operation with anastomosis, bypass or graft as the cause of abnormal reaction of the patient, or of later complication, without mention of misadventure at the time of the procedure; I48.0 Paroxysmal atrial fibrillation; I70.0 Atherosclerosis of aorta; M06.9 Rheumatoid arthritis, unspecified; I25.82 Chronic total occlusion of coronary artery; F17.290 Nicotine dependence, other tobacco product, uncomplicated; G47.33 Obstructive sleep apnea (adult) (pediatric); I25.2 Old myocardial infarction; Z79.84 Long term (current) use of oral hypoglycemic drugs; Z79.01 Long term (current) use of anticoagulants
CPT/HCPCS: 33259; 36415; 71045; 71046; 71250; 80048; 80053; 81003; 82248; 82330; 82565; 82805; 82810; 82947; 82962; 83036; 83605; 83735; 84132; 84302; 84520; 85014; 85018; 85025; 85027; 85049; 85610; 85730; 86803; 86850; 86900; 86901; 86920; 87070; 88738; 93005; 93306; 93308; 93312; 93320; 93321; 93325; 93880; 94002; 94003; 94010; 94727; 94729; 97116; 97163; 97167; 97530; 97535; C1713; J1250; P9016; P9045; P9047; P9059